=== PATIENT | male | born 1955 | race Caucasian/White ===

== ENCOUNTER → 2018-03-24 | Outpatient (CLI) | payer BC ==
[~2018-03-24] MED LIST: AMINOPHYLLINE 250 MG/10 ML VIAL IV ONE; REGADENOSON 0.4 MG/5 ML SYRINGE IV ONE
--- NOTE | 2018-03-24 14:09 | EST ---
EXERCISE STRESS DATE OF SERVICE: 03/24/2018 AGE: 62 SEX: M HT: 5'11" WT: 250 PROTOCOL: Lexiscan Cardiolite Stress Test HEART RATE REST: 89 BLOOD PRESSURE REST: 150/81 MAXIMUM HEART RATE ACHIEVED: 116 MAXIMUM BLOOD PRESSURE: 165/79 85% MPHR: 136 100% MPHR: 160 INDICATIONS: Chest pain. CLINICAL INFORMATION: STRESS DATA: Pretesting physical examination showed a heart rate of 89, pressure is 150/81 mmHg. Baseline EKG showed sinus mechanism; 0.4 mg of Lexiscan was given over 15 seconds per protocol. Max heart rate was 116 beats per minute and maximum pressure was 165/79 mmHg. Clinically, the patient did not have any symptoms of chest pain or discomfort. The EKG did not show any significant ST or T-wave abnormalities concerning for ischemia. CONCLUSION: 1. Nondiagnostic electrocardiogram stress testing in response to Lexiscan. 2. Please follow up on the Cardiolite portion on separate report from the Radiology Department. MMODL / IJN: [id number] /
--- NOTE | 2018-03-24 15:46 | NM ---
EXAMINATION TYPE: NM stress lexiscan cardiolite DATE OF EXAM: 03/24/2018 COMPARISON: NONE HISTORY: Dyspnea and chest pain TECHNIQUE: After the intravenous administration of 10.23 mCi Tc 99m Sestamibi - Cardiolite resting S PECT images acquired 45 minutes post injection. The patient received 0.4mg Lexiscan, 26.3 mCi Tc 99m Sestamibi - Stress images obtained [address] injection FINDINGS: Review of stress and rest SPECT images demonstrates decreased uptake along the anterior wall of the l eft ventricle on stress as compared to rest images, decreased uptake also noted at the cardiac apex o n stress as compared to rest images extending into the inferolateral apical region. Some decreased up take also noted in the apex on stress and rest images suggesting possible prior infarct. Gated analys is shows normal wall motion with an estimated left ventricular ejection fraction of 41 %. IMPRESSION: Patient may have had prior infarct. 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 Report relayed telephonically on this day to the referring clinician.
== END | disposition home or self-care (01) ==
LOC: RADNMMAIN 07:32
PROVIDERS: ATTEND Family Medicine
DX: R07.9 Chest pain, unspecified (principal); R06.09 Other forms of dyspnea
CPT/HCPCS: 93017; 78452; A9500; J2785

== ENCOUNTER 2018-04-21 09:54 | Day surgery (SDC) | payer BC ==
[2018-04-18 14:32] VITALS: BMI 34.8
[2018-04-21] MEDS ORDERED: SODIUM CHLORIDE 0.9% 1,000 ML in EMPTY BAG 1 BAG IV ONE (10:06)
[2018-04-21] MEDS ORDERED: NITROGLYCERIN SL TABS 0.4 MG TAB SUBLINGUAL PRN (10:06)
[2018-04-21] MEDS ORDERED: ALPRAZolam 0.25 MG TAB PO PRN (10:06)
[2018-04-21] MEDS ORDERED: ASPIRIN 325 MG TAB PO STA (10:06)
[2018-04-21] MEDS ORDERED: ATORVASTATIN 80 MG TAB PO STA (10:06)
[2018-04-21] MEDS ORDERED: ALPRAZolam 0.5 MG TAB PO PRN (10:06)
[2018-04-21 10:32] VITALS: TEMP 98.7
[2018-04-21 10:35] LABS: Basophils % (A) 1 %; Eosinophils # (A) 0.3 k/uL (0-0.7); Eosinophils % (A) 3 %; HCT 45.2 % (39.0-53.0); HGB 15.3 gm/dL (13.0-17.5); Lymphocytes # (A) 1.9 k/uL (1.0-4.8); Lymphocytes % (A) 22 %; MCH 32.5 pg (25.0-35.0); MCHC 33.9 g/dL (31.0-37.0); Mean Platelet Volume 7.4; Monocytes # (A) 0.7 k/uL (0-1.0); Monocytes % (A) 8 %; Neutrophils # (A) 5.5 k/uL (1.3-7.7); Neutrophils % (A) 64 %; Platelet Count 209 k/uL (150-450); RBC 4.71 m/uL (4.30-5.90); RDW 12.7 % (11.5-15.5); WBC 8.6 k/uL (3.8-10.6)
[2018-04-21 10:50] LABS: Anion Gap 11 mmol/L; Blood Urea Nitrogen 9 mg/dL (9-20); Calcium 9.5 mg/dL (8.4-10.2); Carbon Dioxide 27 mmol/L (22-30); Chloride 102 mmol/L (98-107); Glucose 161 mg/dL (74-99); Potassium 4.7 mmol/L (3.5-5.1); Sodium 140 mmol/L (137-145)
[2018-04-21] MEDS ORDERED: fentaNYL (PF) 50 MCG/ML 2 ML AMP IV ONE (11:19)
[2018-04-21] MEDS ORDERED: MIDAZOLAM 2 MG/2 ML VIAL IVP ONE (11:19)
[2018-04-21] MEDS ORDERED: IV FLUID CONTINUATION 950 ML IV ONE (11:19)
[2018-04-21] MEDS ORDERED: LIDOCAINE 1% INJ 10MG/ML (20 ML MDV) SQ ONE (11:31)
[2018-04-21] MEDS ORDERED: IOPAMIDOL-370 50ML BTL INJ ONE (11:47)
[2018-04-21] MEDS ORDERED: IOPAMIDOL-370 125ML BTL INJ ONE (11:47)
[2018-04-21] MEDS ORDERED: RX INFO: IV CONTRAST WAS GIVEN 1 EACH MISC MISCELLANE PRN (12:00)
[2018-04-21] MEDS ORDERED: SODIUM CHLORIDE 0.9% 1,000 ML IV SCH (12:00)
--- NOTE | 2018-04-21 12:09 | P.CARDCATH ---
Date of Procedure: 04/21/18 Preoperative Diagnosis: Stable angina and abnormal nuclear stress test Postoperative Diagnosis: Total occlusion of the left anterior descending in the proximal portion Procedure(s) Performed: Left heart catheterization with left ventriculography Description of Procedure: HISTORY: This is a 62-year-old gentleman with history of hypertension and COPD was been experiencing exertional chest tightness and shortness of breath. Patient had a nuclear stress test that showed ischemia which was both fixed and reversible. Patient is advised to have a cardiac catheterization for definitive diagnosis. CONSENT:I have discussed the risks, benefits and alternative therapies for the above-mentioned procedure and for both sedation/analgesia as well as necessary blood product administration, if indicated, as they pertain to this patient. The patient has indicated understanding and acceptance of the risks and procedures discussed. PROCEDURE: Patient was brought to the lab in a fasting state. Patient was given some IV sedation. The right groin is infiltrated with lidocaine and right femoral artery was entered using Seldinger technique. A 6-D[place]iboutian catheter was left in place and selective coronary arteriography and left ventriculography was performed. Patient tolerated the procedure well. Femoral angiogram was performed and Angio-Seal was applied for hemostasis. No immediate complications were noted and patient was transferred to [facility] in a stable condition Conscious Sedation: Versed 1 mg Fentanyl 50 g Duration 20 minutes HEMODYNAMICS: The aortic pressure is about 120/70. Left ankle end-diastolic pressure is about 10-12. There was no gradient across the aortic valve. SELECTIVE CORONARY ARTERIOGRAPHY: LEFT MAIN: Normal length and patent. THE LEFT ANTERIOR DESCENDING CORONARY ARTERY: Totally occluded in the proximal portion. There are ipsilateral collateral filling the diagonal branch. There are contralateral collaterals from the right filling the LAD. LAD seems to the moderate in caliber. THE INTERMEDIATE CORONARY ARTERY: This is a good caliber vessel and free of any occlusive disease THE LEFT CIRCUMFLEX AND IS CORONARY ARTERY: This is a good caliber vessel free of any occlusive disease THE RIGHT CORONARY ARTERY: This is a relatively nondominant vessel. Provides collateral to the distal LAD. Free of any significant occlusive disease LEFT VENTRICULOGRAPHY: This revealed normal-sized cardiac silhouette with hypokinesia presented wall. Overall left were function is mildly impaired with an ejection fraction of 45-50% FINAL IMPRESSION: Total occlusion of the proximal LAD. There are collaterals to the LAD from the right coronary system. The circumflex and right coronary artery are free of any significant occlusive disease PLAN: I would recommend a bypass surgery with the REDD graft to the LAD and vein graft to diagonal PROGNOSIS: Fair
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
--- NOTE | 2018-04-21 14:27 | XR ---
EXAMINATION TYPE: XR chest 2V DATE OF EXAM: 04/21/2018 COMPARISON: NONE TECHNIQUE: PA and lateral views submitted. HISTORY: Preop FINDINGS: The lungs are clear and there is no pneumothorax, pleural effusion, or focal pneumonia. Hypertrophi c and degenerative change of the spine noted. Hyperinflation suggests COPD. Linear density in the ret rosternal space typical scar or atelectasis. IMPRESSION: 1. No acute process. Correlate for COPD.
--- NOTE | 2018-04-21 15:31 | US ---
EXAMINATION TYPE: US carotid duplex BILAT DATE OF EXAM: 04/21/2018 COMPARISON: NONE CLINICAL HISTORY: preop cardiac surgery. EXAM MEASUREMENTS: RIGHT: Peak Systolic Velocity (PSV) cm/sec ----- Right CCA: 57.2 ----- Right ICA: 42.2 ----- Right ECA: 56.4 ICA/CCA ratio: 0.7 RIGHT: End Diastole cm/sec ----- Right CCA: 13.6 ----- Right ICA: 17.6 ----- Right ECA: 4.4 LEFT: Peak Systolic Velocity (PSV) cm/sec ----- Left CCA: 47.9 ----- Left ICA: 55.0 ----- Left ECA: 51.7 ICA/CCA ratio: 1.1 LEFT: End Diastole cm/sec ----- Left CCA: 11.6 ----- Left ICA: 16.6 ----- Left ECA: 0.0 VERTEBRALS (direction of flow): Right Vertebral: Antegrade Left Vertebral: Antegrade Rhythm: Normal Technically difficult study. Large thick neck and SOB. No significant velocity elevations. Intimal thickening scattered atheromatous plaquing is present. IMPRESSION: 1. No flow-limiting stenosis by velocity measurements. Criteria for Assigning % of Stenosis / Diameter reduction (Estimation based on the indirect measurements of the internal carotid artery velocities (ICA PSV). 1. Normal (no stenosis)=ICA PSV < 125 cm/s: ratio < 2.0: ICA EDV<40 cm/s. 2. Less than 50% stenosis=ICA PSV < 125 cm/s: ratio < 2.0: ICA EDV<40 cm/s. 3. 50 to 69% stenosis=ICA PSV of 125 to 230 cm/s: ration 2.0 ? 4.0: ICA EDV 40-100 cm/s. 4. Greater than 70% stenosis to near occlusion= ICA PSV > 230 cm/s: ratio > 4.0: ICA EDV > 100 cm/s. 5. Near occlusion= ICA PSV velocities may be low or undetectable: variable ratio and ICA EDV. 6. Total occlusion=unable to detect flow.
[2018-04-21 15:58] LABS: Basophils % (A) 1 %; Eosinophils # (A) 0.3 k/uL (0-0.7); Eosinophils % (A) 3 %; HCT 43.6 % (39.0-53.0); HGB 14.7 gm/dL (13.0-17.5); Lymphocytes # (A) 2.1 k/uL (1.0-4.8); Lymphocytes % (A) 25 %; MCH 32.7 pg (25.0-35.0); MCHC 33.8 g/dL (31.0-37.0); MCV 96.7 fL (80.0-100.0); Mean Platelet Volume 7.5; Monocytes # (A) 0.6 k/uL (0-1.0); Monocytes % (A) 7 %; Neutrophils # (A) 5.3 k/uL (1.3-7.7); Neutrophils % (A) 63 %; Platelet Count 200 k/uL (150-450); RBC 4.51 m/uL (4.30-5.90); RDW 12.8 % (11.5-15.5); WBC 8.5 k/uL (3.8-10.6)
[2018-04-21 16:08] LABS: INR 1.1 (<1.2); Partial Thromboplastin Time 28.2 sec (22.0-30.0); Prothrombin Time 10.8 sec (9.0-12.0)
[2018-04-21 16:09] LABS: ALT 60 U/L (21-72); AST 53 U/L (17-59); Albumin 4.3 g/dL (3.5-5.0); Alkaline Phosphatase 105 U/L (38-126); Anion Gap 10 mmol/L; Blood Urea Nitrogen 9 mg/dL (9-20); Calcium 9.5 mg/dL (8.4-10.2); Carbon Dioxide 31 mmol/L (22-30); Chloride 99 mmol/L (98-107); Cholesterol 164 mg/dL (<200); Glucose 136 mg/dL (74-99); HDL Cholesterol 38 mg/dL (40-60); LDL Cholesterol,Calculated 99 mg/dL (0-99); Magnesium 1.9 mg/dL (1.6-2.3); Potassium 4.3 mmol/L (3.5-5.1); Sodium 140 mmol/L (137-145); Total Bilirubin 0.7 mg/dL (0.2-1.3); Total Protein 7.5 g/dL (6.3-8.2); Triglycerides 137 mg/dL (<150)
[2018-04-21 16:15] VITALS: BP 164/74; PULSE 77; RESP 22
[2018-04-21 17:13] LABS: Appearance,Urine Clear (Clear); Bilirubin,Urine Negative (Negative); Blood,Urine Negative (Negative); Color,Urine Yellow; Glucose,Urine (UA) Negative (Negative); Ketones,Urine Negative (Negative); Leukocyte Esterase,Urine Negative (Negative); Nitrite,Urine Negative (Negative); PH, Urine 6.5 (5.0-8.0); Protein,Urine Trace (Negative); Urobilinogen,Urine <2.0 mg/dL (<2.0)
[2018-04-21 17:18] LABS: Specific Gravity,Urine >1.050 (1.001-1.035)
[2018-04-22 01:04] LABS: Hemoglobin A1C 7.4 % (4.0-6.0)
[2018-04-22 01:13] LABS: Hepatitis A Antibody IgM Non-Reactive (Non-Reactive); Hepatitis B Core IgM Non-Reactive (Non-Reactive)
--- NOTE | 2018-04-25 10:57 | P.VSCSTY ---
Greater Saphenous Vein Mapping This is bilateral lower extremity greater saphenous vein mapping. Date of service 04/21/2018 Vein quality and ultrasound appearance no wall changes or thrombosis are seen. Vein size groin right 8.4 x 7.1 groin left 9.0 x 7.4 High thigh right 6.3 x 3.9 high thigh left 6.2 x 5.0 Mid thigh right 5.7 x 5.0 mid thigh left 5.6 x 4.7 Above-knee right 5.4 x 4.1 above-knee left 6.0 x 4.7 Below knee right 3.9 x 2.4 below-knee left 5.3 x 3.5 Mid calf right 2.6 x 2.2 mid calf left 2.8 x 2.2 Ankle right 4.5 x 2.2 ankle left 3.0 x 2.2 Impression usable bilateral greater saphenous vein. Vein in the upper thigh a bit large for conduit..
== END 2018-04-21 16:49 | disposition home or self-care (01) ==
LOC: CATHCVL 09:54
PROVIDERS: ATTEND Internal Medicine Cardiovascular Disease
DX: I25.118 Atherosclerotic heart disease of native coronary artery with other forms of angina pectoris (principal); I25.82 Chronic total occlusion of coronary artery; I10 Essential (primary) hypertension; I08.3 Combined rheumatic disorders of mitral, aortic and tricuspid valves; Z87.891 Personal history of nicotine dependence; Z82.49 Family history of ischemic heart disease and other diseases of the circulatory system; J44.9 Chronic obstructive pulmonary disease, unspecified; E78.5 Hyperlipidemia, unspecified; Z79.82 Long term (current) use of aspirin; Z79.899 Other long term (current) drug therapy
CPT/HCPCS: 94150; 93458; 80061; 80053; 80048; 80074; 84443; 83735; 85025; 85610; 85730; 81003; 87070; 87086; 83036; 71046; 93970; 93880; C1760; C1894; C1769; J2250; J2001; J3010; Q9967 ×2

== ENCOUNTER → 2018-05-18 | Outpatient (CLI) | payer BC ==
[2018-05-18 09:29] LABS: HCT 45.3 % (39.0-53.0); HGB 15.4 gm/dL (13.0-17.5); MCH 32.8 pg (25.0-35.0); MCHC 33.9 g/dL (31.0-37.0); MCV 96.5 fL (80.0-100.0); Mean Platelet Volume 7.4; Platelet Count 177 k/uL (150-450); RBC 4.69 m/uL (4.30-5.90); RDW 12.9 % (11.5-15.5); WBC 10.3 k/uL (3.8-10.6)
[2018-05-18 09:37] LABS: INR 1.1 (<1.2); Partial Thromboplastin Time 29.5 sec (22.0-30.0); Prothrombin Time 10.7 sec (9.0-12.0)
[2018-05-18 09:51] LABS: ALT 46 U/L (21-72); AST 43 U/L (17-59); Albumin 4.5 g/dL (3.5-5.0); Alkaline Phosphatase 122 U/L (38-126); Anion Gap 7 mmol/L; Blood Urea Nitrogen 10 mg/dL (9-20); Calcium 9.4 mg/dL (8.4-10.2); Carbon Dioxide 32 mmol/L (22-30); Chloride 101 mmol/L (98-107); Cholesterol 95 mg/dL (<200); Glucose 166 mg/dL (74-99); HDL Cholesterol 35 mg/dL (40-60); LDL Cholesterol,Calculated 39 mg/dL (0-99); Magnesium 1.9 mg/dL (1.6-2.3); Sodium 140 mmol/L (137-145); Total Bilirubin 0.9 mg/dL (0.2-1.3); Total Protein 7.9 g/dL (6.3-8.2); Triglycerides 105 mg/dL (<150)
[2018-05-18 10:44] LABS: ABG Base Excess 4.1 mmol/L; ABG HCO3 28 mmol/L (21-25); ABG PCO2 43 mmHg (35-45); ABG PH 7.42 (7.35-7.45); ABG PO2 64 mmHg (83-108); ABG TCO2 30 mmol/L (19-24)
[2018-05-18 10:47] LABS: Appearance,Urine Clear (Clear); Bilirubin,Urine Negative (Negative); Blood,Urine Negative (Negative); Color,Urine Yellow; Glucose,Urine (UA) Negative (Negative); Ketones,Urine Negative (Negative); Leukocyte Esterase,Urine Negative (Negative); Nitrite,Urine Negative (Negative); PH, Urine 6.5 (5.0-8.0); Protein,Urine Trace (Negative); Specific Gravity,Urine 1.018 (1.001-1.035)
[2018-05-18 17:31] LABS: Hemoglobin A1C 7.4 % (4.0-6.0)
--- NOTE | 2018-05-22 11:34 | P.PN ---
Progress Note - Text Progress Note Date: 05/18/18 STS risk score was calculated and discussed with the patient. 5 meter walk test was performed 05/18/18: #1 3.49 sec #2 3.68 sec #3 3.76 sec
--- NOTE | 2018-05-23 11:30 | P.ARTDOP ---
Arterial Doppler LOWER EXTREMITY ARTERIAL DOPPLER: DATE OF SERVICE: 05/18/2018 Reason for study: Pre-CABG. Doppler waveforms: Multiphasic bilaterally throughout. Pulse volume recording: []. Pressure gradients: None. Ankle-brachial indices: Greater than 1 bilaterally. Toe pressures: [] on the right, [] on the left Impression: Normal study.
== END | disposition home or self-care (01) ==
LOC: LABPAT 08:56
PROVIDERS: ATTEND Surgery
DX: Z01.810 Encounter for preprocedural cardiovascular examination (principal)
CPT/HCPCS: 36415; 36600; 80053; 80061; 81003; 82805; 83036; 83735; 83880; 84484; 85027; 85610; 85730; 86850; 86900; 86901; 86920; 87086; 93005; 93922; 94150

== ENCOUNTER 2018-05-26 05:33 | Inpatient (IN) | payer BC ==
[~2018-05-26 05:33] MED LIST changes: +ALBUMIN HUMAN 25% 50 ML IV ONE; +ALBUMIN HUMAN 5% 500 ML IVPB ONE; -AMINOPHYLLINE 250 MG/10 ML VIAL IV ONE; +ASPIRIN 325 MG TAB PO ONE; +ATORVASTATIN 10 MG TAB PO ONE; +CALCIUM CHLORIDE 100 MG/ML 10 ML SYRINGE IV ONE; +CHLORHEXIDINE GLUCONATE 15 ML CUP MUCOUS MEM ONE; +CLEVIDIPINE BUTYRATE 25 MG in EMPTY BAG 1 BAG IV ONE; +DEXTROSE 5% IN WATER 1,000 ML with POTASSIUM CHLORIDE 110 MEQ, MAGNESIUM SULFATE 16 MEQ... IV ONE; +DEXTROSE 5% IN WATER 1,000 ML with POTASSIUM CHLORIDE 25 MEQ, SODIUM CHLORIDE 2.5MEQ/ML... IRRIGATION ONE; +HEPARIN SODIUM 1,000 UN/ML (10ML VL) IV ONE; +HEPARIN SODIUM,PORCINE 5,000 UNIT in SODIUM CHLORIDE 0.9% 500 ML IV ONE; +INSULIN REGULAR 100 UNIT in SODIUM CHLORIDE 0.9% 100 ML IV ONE; +LACTATED RINGERS 1,000 ML IV ONE; +MAGNESIUM SULFATE MG 500 MG/ML VIAL IV ONE; +MANNITOL 25% 12.5 GM/50 ML VIAL IV ONE; +METOPROLOL TARTRATE 12.5 MG TAB PO ONE; +NITROGLYCERIN SL TABS 0.4 MG TAB SUBLINGUAL ONE; +NITROGLYCERIN-D5W PMX 25 MG/250 ML BTL IV ONE; +NITROGLYCERIN-D5W PMX 50 MG in DEXTROSE/WATER 1 250ML.BAG IV ONE; +NOREPINEPHRINE 4 MG in DEXTROSE 5% IN WATER 250 ML IV ONE; +PAPAVERINE 360 MG in SODIUM CHLORIDE 0.9% 90 ML IV ONE; +PHENYLEPHRINE 40 MG in SODIUM CHLORIDE 0.9% 250 ML IV ONE; +PHENYLEPHRINE-0.9% NACL SYG 1 MG/10 ML SYRINGE IV ONE; +PROPOFOL 1,000 MG/100 ML VIAL IV ONE; +PROTAMINE SULFATE 10 MG/ML 25 ML VIAL IV ONE; +PROTAMINE SULFATE 250 MG in EMPTY BAG 1 BAG IV ONE; -REGADENOSON 0.4 MG/5 ML SYRINGE IV ONE; +SODIUM BICARB 8.4% 50 ML SYR (1 MEQ/ML) IV ONE; +SODIUM CHLORIDE 0.9% 1,000 ML IV ONE; +TRANEXAMIC ACID 2,000 MG in SODIUM CHLORIDE 0.9% 180 ML IV ONE; +ceFAZolin 2,000 MG in SODIUM CHLORIDE 0.9% 30 ML IVPB ONE
[2018-05-26] MEDS ORDERED: SODIUM CHLORIDE 0.9% 250 ML BAG ONE (08:02)
[2018-05-26] MEDS ORDERED: LIDOCAINE 2% SYG (PF) 100 MG/5 ML ONE (08:02)
[2018-05-26] MEDS ORDERED: PROPOFOL 10 MG/ML 20 ML VIAL IV ONE (08:02)
[2018-05-26] MEDS ORDERED: ELECTROLYTE-R (PH 7.4) 1,000 ML IV.SOLN IV ONE (08:02)
[2018-05-26] MEDS ORDERED: fentaNYL (PF) 50 MCG/ML 2 ML AMP ONE (08:02)
[2018-05-26] MEDS ORDERED: SUFentanil 50 MCG/ML 2ML AMP ONE (08:02)
[2018-05-26] MEDS ORDERED: TRANEXAMIC ACID 1,000 MG/10 ML VIAL ONE (08:02)
[2018-05-26] MEDS ORDERED: MIDAZOLAM 2 MG/2 ML VIAL ONE (08:02)
[2018-05-26] MEDS ORDERED: VECURONIUM 10 MG VIAL IV ONE (08:02)
[2018-05-26] MEDS ORDERED: MAGNESIUM SULFATE 4 MEQ/ML 2 ML VIAL ONE (08:02)
[2018-05-26] MEDS ORDERED: fentaNYL (PF) 50 MCG/ML 50 ML VIAL ONE (08:02)
[2018-05-26] MEDS ORDERED: PROTAMINE SULFATE 10 MG/ML 25 ML VIAL IV ONE (08:02)
[2018-05-26] MEDS ORDERED: HEPARIN SODIUM,PORCINE 10,000 UNIT/ML 1 ML VIAL ONE (08:02)
[2018-05-26 08:34] LABS: ABG Base Excess 0.8 mmol/L; ABG HCO3 27 mmol/L (21-25); ABG PCO2 49 mmHg (35-45); ABG PH 7.35 (7.35-7.45); ABG PO2 396 mmHg (83-108); ABG Potassium Whole Blood 3.8 mmol/L (3.4-4.5); ABG Sodium Whole Blood 139 mmol/L (135-146); ABG TCO2 29 mmol/L (19-24)
[2018-05-26] MEDS: ceFAZolin 1,000 MG in SODIUM CHLORIDE 0.9% IRRIGATIO 1,000 ML IRRIGATION ONE ×2 (09:20→12:34)
[2018-05-26 10:09] LABS: ABG Base Excess 0.9 mmol/L; ABG HCO3 29 mmol/L (21-25); ABG Oxygen Saturation 99.2 % (94-97); ABG PCO2 61 mmHg (35-45); ABG PH 7.29 (7.35-7.45); ABG PO2 158 mmHg (83-108); ABG Potassium Whole Blood 4.8 mmol/L (3.4-4.5); ABG Sodium Whole Blood 138 mmol/L (135-146); ABG TCO2 31 mmol/L (19-24)
[2018-05-26 11:02] LABS: ABG Base Excess -0.4 mmol/L; ABG HCO3 27 mmol/L (21-25); ABG Oxygen Saturation 99.1 % (94-97); ABG PCO2 54 mmHg (35-45); ABG PH 7.31 (7.35-7.45); ABG PO2 141 mmHg (83-108); ABG Sodium Whole Blood 130 mmol/L (135-146); ABG TCO2 28 mmol/L (19-24)
[2018-05-26 11:14] LABS: ABG Base Excess -0.7 mmol/L; ABG HCO3 25 mmol/L (21-25); ABG PCO2 46 mmHg (35-45); ABG PH 7.34 (7.35-7.45); ABG PO2 303 mmHg (83-108); ABG Sodium Whole Blood 131 mmol/L (135-146); ABG TCO2 27 mmol/L (19-24)
[2018-05-26 11:41] LABS: ABG Base Excess -1.5 mmol/L; ABG HCO3 24 mmol/L (21-25); ABG Oxygen Saturation 99.9 % (94-97); ABG PCO2 45 mmHg (35-45); ABG PH 7.34 (7.35-7.45); ABG PO2 232 mmHg (83-108); ABG Sodium Whole Blood 133 mmol/L (135-146); ABG TCO2 26 mmol/L (19-24)
[2018-05-26 11:58] LABS: ABG Base Excess -2.4 mmol/L; ABG HCO3 24 mmol/L (21-25); ABG Oxygen Saturation 99.5 % (94-97); ABG PCO2 46 mmHg (35-45); ABG PH 7.32 (7.35-7.45); ABG PO2 187 mmHg (83-108); ABG Potassium Whole Blood 5.7 mmol/L (3.4-4.5); ABG Sodium Whole Blood 135 mmol/L (135-146); ABG TCO2 25 mmol/L (19-24)
[2018-05-26 12:43] LABS: ABG Base Excess -1.8 mmol/L; ABG HCO3 25 mmol/L (21-25); ABG Oxygen Saturation 99.9 % (94-97); ABG PCO2 51 mmHg (35-45); ABG PO2 235 mmHg (83-108); ABG Potassium Whole Blood 4.9 mmol/L (3.4-4.5); ABG Sodium Whole Blood 137 mmol/L (135-146); ABG TCO2 27 mmol/L (19-24)
[2018-05-26 12:52] LABS: ABG Potassium Whole Blood 6.9 mmol/L (3.4-4.5)
[2018-05-26 12:54] LABS: ABG Potassium Whole Blood 6.9 mmol/L (3.4-4.5)
[2018-05-26 12:54] LABS: ABG Potassium Whole Blood 6.3 mmol/L (3.4-4.5)
[2018-05-26] MEDS ORDERED: DEXTROSE 5% IN WATER 100 ML with AMIODARONE 150 MG IV PRN (13:27)
[2018-05-26] MEDS ORDERED: METOCLOPRAMIDE 5 MG/ML 2 ML VIAL IVP PRN (13:27)
[2018-05-26] MEDS ORDERED: Phosphorus Replacement Protoco 1 EACH MISC MISCELLANE PRN (13:27)
[2018-05-26] MEDS ORDERED: BENZOCAINE/MENTHOL LOZENG 1 EACH LOZENGE MUCOUS MEM PRN (13:27)
[2018-05-26] MEDS ORDERED: CALCIUM CHLORIDE 1,000 MG in SODIUM CHLORIDE 0.9% 100 ML IV PRN (13:27)
[2018-05-26] MEDS ORDERED: NITROGLYCERIN-D5W PMX 50 MG in DEXTROSE/WATER 1 250ML.BAG IV SCH (13:27)
[2018-05-26] MEDS ORDERED: Magnesium Replacement Protocol 1 EACH MISC MISCELLANE PRN (13:27)
[2018-05-26] MEDS ORDERED: PROPOFOL 1,000 MG in EMPTY BAG 1 BAG IV SCH (13:27)
[2018-05-26] MEDS ORDERED: IPRATROPIUM-ALBUTEROL 3 ML NEB INHALATION PRN (13:27)
[2018-05-26] MEDS ORDERED: ALBUMIN HUMAN 5% 250 ML in EMPTY BAG 1 BAG IVPB PRN (13:27)
[2018-05-26] MEDS ORDERED: Potassium Replacement Protocol 1 EACH MISC MISCELLANE PRN (13:27)
[2018-05-26] MEDS: LACTATED RINGERS 1,000 ML IV SCH (14:00)
[2018-05-26] MEDS: INSULIN REGULAR 100 UNIT in SODIUM CHLORIDE 0.9% 100 ML IV SCH (14:00)
[2018-05-26 14:12] LABS: Glucose,Whole Blood 159 mg/dL (75-99)
[2018-05-26] MEDS: CLEVIDIPINE BUTYRATE 25 MG in EMPTY BAG 1 BAG IV SCH ×4 (14:15→23:54)
[2018-05-26 14:34] LABS: ABG Base Excess -0.1 mmol/L; ABG HCO3 27 mmol/L (21-25); ABG PCO2 59 mmHg (35-45); ABG PH 7.27 (7.35-7.45); ABG PO2 374 mmHg (83-108); ABG TCO2 29 mmol/L (19-24)
--- NOTE | 2018-05-26 14:45 | XR ---
EXAMINATION TYPE: XR chest 1V portable DATE OF EXAM: 05/26/2018 COMPARISON: 04/21/2018 HISTORY: Post CABG TECHNIQUE: Single frontal view of the chest is obtained. FINDINGS: ET tube is approximately 6 7 m above randal. [place]-Marie catheter, mediastinal drain and tiburcio st tube noted. Areas of consolidation and tiny effusion bilaterally. Arthropathy of the shoulders. Po stsurgical changes noted. IMPRESSION: 1. Postoperative change with suspected bilateral areas of postoperative atelectasis.
[2018-05-26] MEDS ORDERED: hydrALAZINE HCL 20 MG/ML 1 ML VIAL ONE (15:00)
[2018-05-26] MEDS: LABETALOL 5 MG/ML VIAL MDV IVP SCH ×3 (15:15→15:37)
[2018-05-26] MEDS ORDERED: fentaNYL (PF) 50 MCG/ML 2 ML AMP IVP PRN (15:15)
[2018-05-26 15:34] LABS: Ionized Calcium 4.8 mg/dL (4.5-5.3)
[2018-05-26 15:37] LABS: Basophils % (A) 0 %; Eosinophils % (A) 0 %; HCT 31.2 % (39.0-53.0); HGB 10.7 gm/dL (13.0-17.5); Lymphocytes # (A) 1.2 k/uL (1.0-4.8); Lymphocytes % (A) 9 %; MCH 33.8 pg (25.0-35.0); MCHC 34.4 g/dL (31.0-37.0); MCV 98.2 fL (80.0-100.0); Mean Platelet Volume 7.5; Monocytes # (A) 0.9 k/uL (0-1.0); Monocytes % (A) 7 %; Neutrophils # (A) 10.9 k/uL (1.3-7.7); Neutrophils % (A) 83 %; RBC 3.18 m/uL (4.30-5.90); RDW 12.6 % (11.5-15.5); WBC 13.1 k/uL (3.8-10.6)
[2018-05-26 15:38] LABS: Platelet Count 90 k/uL (150-450)
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
[2018-05-26] MEDS: ceFAZolin IN SWFI 2 GM/20 ML SYRINGE IVP SCH ×2 (15:43→23:55)
[2018-05-26 15:45] LABS: ALT 37 U/L (21-72); AST 48 U/L (17-59); Albumin 3.2 g/dL (3.5-5.0); Alkaline Phosphatase 52 U/L (38-126); Anion Gap 7 mmol/L; Blood Urea Nitrogen 13 mg/dL (9-20); Calcium 7.8 mg/dL (8.4-10.2); Carbon Dioxide 26 mmol/L (22-30); Chloride 106 mmol/L (98-107); Glucose 143 mg/dL (74-99); Magnesium 2.3 mg/dL (1.6-2.3); Potassium 4.7 mmol/L (3.5-5.1); Sodium 139 mmol/L (137-145); Total Bilirubin 0.9 mg/dL (0.2-1.3); Total Protein 5.3 g/dL (6.3-8.2)
[2018-05-26 15:55] LABS: INR 1.2 (<1.2); Partial Thromboplastin Time 31.4 sec (22.0-30.0); Prothrombin Time 11.7 sec (9.0-12.0)
[2018-05-26] MEDS ORDERED: IPRATROPIUM-ALBUTEROL 3 ML NEB INHALATION SCH (16:00)
[2018-05-26 16:04] LABS: Glucose,Whole Blood 144 mg/dL (75-99)
[2018-05-26 16:47] LABS: Basophils % (A) 0 %; Eosinophils % (A) 0 %; HCT 35.5 % (39.0-53.0); Lymphocytes # (A) 1.7 k/uL (1.0-4.8); Lymphocytes % (A) 11 %; MCHC 33.7 g/dL (31.0-37.0); MCV 97.7 fL (80.0-100.0); Mean Platelet Volume 7.8; Monocytes # (A) 0.9 k/uL (0-1.0); Monocytes % (A) 6 %; Neutrophils # (A) 12.1 k/uL (1.3-7.7); Neutrophils % (A) 82 %; Platelet Count 122 k/uL (150-450); RBC 3.63 m/uL (4.30-5.90); RDW 12.7 % (11.5-15.5); WBC 14.9 k/uL (3.8-10.6)
--- NOTE | 2018-05-26 16:52 | OP ---
OPERATIVE REPORT DATE OF SURGERY: 05/26/2018. PREOPERATIVE DIAGNOSIS: Coronary artery disease. POSTOPERATIVE DIAGNOSIS: Coronary artery disease. PROCEDURE: 1. Coronary artery bypass grafting x2 vessels (left internal mammary artery to left anterior descending artery, saphenous vein graft to diagonal artery). 2. Patch angioplasty of left anterior descending artery. 3. Endoscopic vein harvest of left greater saphenous vein. 4. Transesophageal echocardiogram. 5. Epiaortic ultrasound. SURGEON: Adonis Valle MD. SURVEILLANCE DUAL RATE OFFICER: 1. WINSTON Aguillon. 2. WINSTON Freeman. ANESTHESIA: General. SPECIMENS: None. COMPLICATIONS: None. INDICATION: The patient is a 62-year-old male with a past medical history significant for coronary artery disease, COPD, hypertension, hyperlipidemia, and tobacco use who reports exertional angina and dyspnea with exertion. Workup revealed coronary artery disease. Coronary artery bypass was recommended. The risks, benefits, and alternatives to this procedure were discussed with the patient. All his questions were answered. Consent was obtained. FINDINGS: The left internal mammary artery was a good conduit with brisk flow. The saphenous vein was a good conduit. The LAD measured 1.3 mm. The diagonal artery measured 1.3 mm. PROCEDURE IN DETAIL: The patient was taken to the operating room and placed supine on the operating table. After the induction of general anesthesia, he was prepped and draped in the usual sterile fashion. Preoperative transesophageal echocardiogram revealed a preserved ejection fraction of about 50% and trace mitral regurgitation. A median sternotomy was performed. The left internal mammary artery was harvested in the standard fashion taking care to clip all branches. Intravenous heparin was administered. The vessel was transected distally revealing brisk flow. Simultaneously, greater saphenous vein was harvested from the left lower extremity using endoscopic technique. All branches were tied. Both the mammary artery and the vein were good conduits. A pericardial cradle was created. The ascending aorta was palpated. There was no significant plaque noted. Epiaortic ultrasound was then performed. Again, there was no significant calcific plaque noted in the aorta. However, there was some atheromatous disease located posteriorly. An arterial cannula was placed in the distal ascending aorta. A venous cannula was placed through the right atrial appendage and directed into the IVC. Both antegrade and retrograde catheters were placed as well. The patient was then placed on cardiopulmonary bypass with good decompression of the heart. The aortic cross-clamp was applied in an area free of atheromatous disease. Cold blood potassium cardioplegia was delivered in both antegrade and retrograde fashion to achieve arrest of the heart. Of note, cardioplegia was delivered every 15-20 minutes with the patient under crossclamp. We began by dissecting free the diagonal artery. A small arteriotomy was created. This vessel accepted a 1 mm probe. Using saphenous vein in a reverse fashion, an end-to- side anastomosis was created. This was performed using a running 7-0 Prolene suture. The graft was hemostatic and had good flow. Next, the LAD was dissected free. A soft spot was noted distally. There was some plaque noted. I did extend my arteriotomy across the plaque. This vessel accepted a 1 mm probe. Using the left internal mammary artery, an end-to-side anastomosis created. This was performed using running 8- 0 Prolene suture and resulted in an extended anastomosis with patch angioplasty. The anastomosis was hemostatic. The mammary pedicle was then tacked down to the anterior side of the heart. Attention was then turned to the proximal anastomosis. This performed in an end -to- side fashion using running 6-0 Prolene suture. 1 L of warm blood was delivered in retrograde fashion. Lidocaine and magnesium were administered as well. The cross- clamp was removed. The vein grafts were de-aired in the standard fashion. Distal anastomoses were inspected and appeared to be hemostatic. The retrograde catheter was removed. Temporary atrial and ventricular pacing wires were placed and brought through the skin. The patient was then weaned off coronary bypass. He without difficulty. He did not require any pressor support. Followup transesophageal echocardiogram confirmed good left ventricular ejection fraction and trace mitral regurgitation. Of note, the patient was noted to have some hypokinesis of the septum, which was seen on the preop echo as well. It was unchanged. Protamine was administered. There was no adverse reactions. The remaining cannulas were then removed. The site was copiously irrigated with warm saline solution. All surgical sites were inspected and appeared to be hemostatic. Reinforcement sutures were placed as needed. Soft tissue was reapproximated over the ascending aorta as well as over the apex of the heart. Straight 32-[place] chest tubes were placed in the left pleural space as well as into the mediastinum. These were secured to the skin using sutures. Due to the patient's body habitus, I elected to close the sternum using the [place] cable system. The cables were placed in a figure-eight fashion. At the completion of the closure, the sternum was well aligned. The remainder of the wound was closed in layers. Sterile dressing was applied. The patient appeared to have tolerated the procedure well. There were no immediate complications. He returned to the ICU in critical but stable condition. MATHIEU / EZN: [id number] / MTDMarce
[2018-05-26 17:10] LABS: Glucose,Whole Blood 139 mg/dL (75-99)
[2018-05-26] MEDS: KETOROLAC 30 MG/ML 1 ML VIAL IVP SCH ×2 (17:18→23:55)
[2018-05-26] MEDS: ACETAMINOPHEN IV (For NPO) 1,000 MG in EMPTY BAG 1 BAG IVPB SCH ×2 (17:18→23:53)
[2018-05-26] MEDS: IPRATROPIUM-ALBUTEROL 3 ML NEB INHALATION SCH ×2 (17:33→19:47)
[2018-05-26 18:02] LABS: Glucose,Whole Blood 139 mg/dL (75-99)
[2018-05-26 19:12] LABS: ABG Base Excess 0.4 mmol/L; ABG HCO3 27 mmol/L (21-25); ABG Oxygen Saturation 96.6 % (94-97); ABG PCO2 51 mmHg (35-45); ABG PH 7.32 (7.35-7.45); ABG PO2 84 mmHg (83-108); ABG TCO2 28 mmol/L (19-24)
[2018-05-26 19:22] LABS: Basophils % (A) 0 %; Eosinophils # (A) 0.1 k/uL (0-0.7); Eosinophils % (A) 0 %; HCT 34.4 % (39.0-53.0); HGB 11.9 gm/dL (13.0-17.5); Lymphocytes # (A) 1.2 k/uL (1.0-4.8); Lymphocytes % (A) 8 %; MCH 33.8 pg (25.0-35.0); MCHC 34.5 g/dL (31.0-37.0); Mean Platelet Volume 7.4; Monocytes # (A) 1.1 k/uL (0-1.0); Monocytes % (A) 7 %; Neutrophils # (A) 12.6 k/uL (1.3-7.7); Neutrophils % (A) 83 %; Platelet Count 120 k/uL (150-450); RBC 3.51 m/uL (4.30-5.90); RDW 12.7 % (11.5-15.5); WBC 15.2 k/uL (3.8-10.6)
[2018-05-26 19:30] LABS: Glucose,Whole Blood 153 mg/dL (75-99)
[2018-05-26 20:03] LABS: Glucose,Whole Blood 171 mg/dL (75-99)
[2018-05-26] MEDS: ONDANSETRON 4 MG/2 ML VIAL IVP PRN (20:57)
[2018-05-26 20:59] LABS: Glucose,Whole Blood 157 mg/dL (75-99)
[2018-05-26] MEDS: MUPIROCIN 2% OINT 22 GM TUBE NASAL SCH (21:15)
--- NOTE | 2018-05-26 21:19 | CONS ---
CONSULTATION Mr. Lara is a 62-year-old male with coronary bypass grafting with REDD to LAD, saphenous vein graft to diagonal branch. He is intubated and sedated in the ICU. The patient has been followed by Dr. Mckeon. He has a history of COPD and history of dyspnea on exertion as well as prior history of cardiomyopathy. He underwent a cardiac catheterization by Dr. Mckeon on April 21. At that time, he had a totally occluded proximal LAD with collateral to left system from the right coronary artery with no obstructive disease in the RCA and the left circumflex. The patient was admitted electively and underwent the surgical intervention. Earlier on, he had an episode of hypertension that required labetalol to control it. At this time, his blood pressure is under better control. He is in sinus mechanism. PAST MEDICAL HISTORY: Past history is obtained from the records and include: Hypertension, COPD, history of smoking, hyperlipidemia. His ejection fraction preoperatively was estimated at 55% with no significant valvular disease. REVIEW OF SYSTEMS: Is not obtainable at this time. PHYSICAL EXAMINATION: A 62-year-old male intubated, sedated. Blood pressure 120/50 with a heart in the 80s. HEAD: Normocephalic. EYES: Sclerae anicteric. NECK: No bruit with a [place]-Marie noted on the right side. LUNGS: Clear to auscultation anteriorly. HEART: Regular rate and rhythm S1, S2. No S3 with a rub noted. ABDOMEN: Soft, positive bowel sounds. No organomegaly. EXTREMITIES: Cristopher wrapping in place. LAB DATA: Lab data revealed a hemoglobin of 12. BUN and creatinine of 13 and 0.62. IMPRESSION: 1. Status post coronary artery bypass grafting. 2. Hypertension. 3. History of chronic tobacco use. RECOMMENDATION: From the cardiac standpoint, we will continue the routine postoperative care. Once he is extubated, then we will re-initiate treatment with CRISTOPHER inhibitor and statin and beta brayden. Thank you for this consult. We will follow with you. MMODL / IJN: [id number] /
[2018-05-26 21:53] LABS: Glucose,Whole Blood 166 mg/dL (75-99)
[2018-05-26 23:04] LABS: Glucose,Whole Blood 180 mg/dL (75-99)
[2018-05-26] MEDS: HEPARIN SODIUM,PORCINE 5,000 UNIT/ML 1 ML VIAL SQ SCH (23:55)
[2018-05-27 00:07] LABS: Glucose,Whole Blood 136 mg/dL (75-99)
[2018-05-27 01:08] LABS: Glucose,Whole Blood 154 mg/dL (75-99)
[2018-05-27 02:08] LABS: Glucose,Whole Blood 135 mg/dL (75-99)
[2018-05-27 03:11] LABS: Glucose,Whole Blood 123 mg/dL (75-99)
[2018-05-27 04:15] LABS: Glucose,Whole Blood 141 mg/dL (75-99)
[2018-05-27 04:32] LABS: Basophils % (A) 0 %; Eosinophils % (A) 0 %; HCT 33.2 % (39.0-53.0); HGB 11.1 gm/dL (13.0-17.5); Lymphocytes # (A) 1.2 k/uL (1.0-4.8); Lymphocytes % (A) 9 %; MCH 31.7 pg (25.0-35.0); MCHC 33.4 g/dL (31.0-37.0); Mean Platelet Volume 8.4; Monocytes # (A) 0.8 k/uL (0-1.0); Monocytes % (A) 6 %; Neutrophils # (A) 11.4 k/uL (1.3-7.7); Neutrophils % (A) 83 %; Platelet Count 108 k/uL (150-450); RBC 3.49 m/uL (4.30-5.90); RDW 12.4 % (11.5-15.5); WBC 13.7 k/uL (3.8-10.6)
[2018-05-27 04:43] LABS: INR 1.2 (<1.2); Partial Thromboplastin Time 27.7 sec (22.0-30.0); Prothrombin Time 11.8 sec (9.0-12.0)
[2018-05-27 05:31] LABS: Ionized Calcium 4.8 mg/dL (4.5-5.3)
[2018-05-27 06:03] LABS: ALT 39 U/L (21-72); AST 51 U/L (17-59); Albumin 3.3 g/dL (3.5-5.0); Alkaline Phosphatase 57 U/L (38-126); Anion Gap 8 mmol/L; Blood Urea Nitrogen 14 mg/dL (9-20); Calcium 8.5 mg/dL (8.4-10.2); Carbon Dioxide 25 mmol/L (22-30); Chloride 103 mmol/L (98-107); Glucose 140 mg/dL (74-99); Magnesium 1.9 mg/dL (1.6-2.3); Potassium 4.3 mmol/L (3.5-5.1); Sodium 136 mmol/L (137-145); Total Bilirubin 0.9 mg/dL (0.2-1.3); Total Protein 5.7 g/dL (6.3-8.2)
[2018-05-27] MEDS: ACETAMINOPHEN IV (For NPO) 1,000 MG in EMPTY BAG 1 BAG IVPB SCH ×3 (06:10→18:08)
[2018-05-27] MEDS: KETOROLAC 30 MG/ML 1 ML VIAL IVP SCH ×4 (06:11→23:58)
[2018-05-27 06:30] LABS: Glucose,Whole Blood 157 mg/dL (75-99)
--- NOTE | 2018-05-27 06:42 | XR ---
EXAMINATION TYPE: XR chest 1V portable DATE OF EXAM: 05/27/2018 HISTORY: Post Operative Cardiac Surgery. REFERENCE: Previous study dated 05/26/2018. FINDINGS: There has been a midline sternotomy. The patient has been extubated. The patient is NG tube is been removed. Right internal jugular sheath remains in place. A [place]-Marie catheter is present. It s tip is in the right main pulmonary artery. There is minimal residual left basilar atelectasis. The right lung is clear. Heart size upper limits of normal. No definite pleural fluid is seen.. IMPRESSION: IMPROVED AERATION, BOTH LUNGS.
[2018-05-27 07:30] LABS: Glucose,Whole Blood 147 mg/dL (75-99)
[2018-05-27] MEDS: ceFAZolin IN SWFI 2 GM/20 ML SYRINGE IVP SCH (07:44)
[2018-05-27] MEDS: HEPARIN SODIUM,PORCINE 5,000 UNIT/ML 1 ML VIAL SQ SCH ×3 (07:45→23:59)
[2018-05-27] MEDS: MAGNESIUM SULFATE-D5W PMX 1 GM in DEXTROSE/WATER 1 100ML.BAG IVPB SCH ×2 (07:46→09:05)
[2018-05-27 07:52] LABS: Glucose,Whole Blood 125 mg/dL (75-99)
[2018-05-27] MEDS: ONDANSETRON 4 MG/2 ML VIAL IVP PRN (08:18)
[2018-05-27] MEDS: IPRATROPIUM-ALBUTEROL 3 ML NEB INHALATION SCH ×4 (08:33→20:25)
--- NOTE | 2018-05-27 08:46 | P.PN ---
Subjective Progress Note Date: 05/27/18 Principal diagnosis: Postop day #1, status post four-vessel bypass grafting Progress note dated 05/27/2018 This is a 62-year-old male who is postop day #1, status post four-vessel bypass grafting. Currently, he is doing reasonably well but remains on a number different things including 6 L nasal cannula, lactated Ringer's at 50 mL an hour , insulin drip 4 units an hour and nitroglycerin drip at 5 mics per minute. He is doing about 1700 mL on his incentive spirometer. The patient has a history of CAD COPD, goal stage III, chronic nicotine dependence, chronic marijuana use , hypertension, hyperlipidemia, ischemic cardiomyopathy, and valvular heart disease in the form of mild mitral regurgitation and trace aortic insufficiency. The patient down denies any complaints today. Denies any chest pain chest discomfort palpitations fluttering in the chest. Denies any shortness of breath. He does have anterior chest pain on deep breathing consistent with his recent median sternotomy. The patient appears not to be any distress at this time. Objective - Vital Signs Vital signs: Vital Signs Temp 97.9 F 05/27/18 04:00 Pulse 87 05/27/18 08:33 Resp 20 05/27/18 07:30 BP 124/65 05/27/18 07:30 Pulse Ox 100 05/27/18 07:30 Intake & Output 05/26/18 05/27/18 05/27/18 18:59 06:59 18:59 Intake Total 596.255 2887.244 60.747 Output Total 2595 1162 45 Balance -2347.458 522.244 15.747 Weight 109 kg 115.8 kg Intake: IV 158 498 56 CO/CI 80 70 Lactated Ringers 1,000 ml 350 50 @ 50 mls/hr IV .Q20H OLE Rx#:[id number] Pressure Bag 45 78 6 Intake, IV Titration 89.542 366.244 4.747 Amount ACETAMINOPHEN IV (For NPO 100 ) 1,000 mg In Empty Bag 1 bag @ 400 mls/hr IVPB Q6HR OLE Rx#:[id number] Albumin Human 5% 250 ml 100 In Empty Bag 1 bag @ 250 mls/hr IVPB Q1HR PRN Rx#: [id number] Clevidipine Butyrate 25 12.200 135.734 mg In Empty Bag 1 bag @ 1 MG/HR 2 mls/hr IV .Q24H OLE Rx#:[id number] Insulin Regular 100 unit 4.53 30.510 4.747 In Sodium Chloride 0.9% 100 ml @ Per Protocol IV .Q0M OLE Rx#:[id number] Propofol 1,000 mg In 72.812 Empty Bag 1 bag @ Titrate IV .Q0M OLE Rx#: [id number] Oral 700 Tube Feeding 120 Output: Chest Tube Drainage 115 362 0 Left Pleural 5 52 0 Mediastinal x2 110 310 0 Urine 980 800 45 Estimated Blood Loss 1500 Other: Voiding Method Indwelling Catheter Indwelling Catheter ABP, PAP, CO, CI - Last Documented Arterial Blood Pressure 105/53 Pulmonary Artery Pressure 22/9 Cardiac Output 7.2 Cardiac Index 3.5 - Exam No acute distress, oriented 3. Nasal O2 in place. HEENT examination is grossly unremarkable. Mucous membranes are moist. No oral lesions. Neck supple. Full range of motion. No adenopathy thyromegaly or neck vein distention. Cardiovascular examination reveals regular rhythm rate. S1-S2 normal. No S3 or S4. No discernible murmur noted. Heart sounds are distant. Lungs reveal mostly clear breath sounds. Her sounds are equal bilaterally. A few scattered rhonchi noted. No wheezes or crackles. He complains of pain while taking a deep breath. Abdomen soft bowel sounds are heard. No masses or tenderness. Extremities are intact. No cyanosis clubbing or edema. Skin is without rash or lesion. Neurologic examination is brief but nonfocal. - Labs CBC & Chem 7: 05/27/18 04:30 05/27/18 04:17 Labs: Abnormal Lab Results - Last 24 Hours (Table) 05/18/18 05/26/18 05/26/18 Range/Units 09:01 08:36 10:10 WBC (3.8-10.6) k/uL RBC (4.30-5.90) m/uL Hgb (13.0-17.5) gm/dL Hct (39.0-53.0) % Plt Count (150-450) k/uL Neutrophils # (1.3-7.7) k/uL Monocytes # (0-1.0) k/uL INR (<1.2) APTT (22.0-30.0) sec ABG pH 7.29 L (7.35-7.45) ABG pCO2 49 H 61 H (35-45) mmHg ABG pO2 396 H 158 H (83-108) mmHg ABG HCO3 27 H 29 H (21-25) mmol/L ABG Total CO2 29 H 31 H (19-24) mmol/L ABG O2 Saturation 100.0 H 99.2 H (94-97) % ABG Hematocrit (34.0-46.0) % ABG Sodium (135-146) mmol/L ABG Potassium 4.8 H (3.4-4.5) mmol/L ABG Ionized Calcium (4.5-5.3) mg/dL ABG Glucose 176 H 190 H (75-99) mg/dL ABG Lactic Acid (0.5-1.6) mmol/L Hemoglobin (13.0-17.5) gm/dL Sodium (137-145) mmol/L Creatinine (0.66-1.25) mg/dL Glucose (74-99) mg/dL POC Glucose (mg/dL) (75-99) mg/dL Calcium (8.4-10.2) mg/dL Total Protein (6.3-8.2) g/dL Albumin (3.5-5.0) g/dL Arterial Blood Potassium 4.8 H (3.4-4.5) mmol/L Arterial Blood Glucose 176 H 190 H (75-99) mg/dL Crossmatch See Detail 05/26/18 05/26/18 05/26/18 Range/Units 11:04 11:16 11:43 WBC (3.8-10.6) k/uL RBC (4.30-5.90) m/uL Hgb (13.0-17.5) gm/dL Hct (39.0-53.0) % Plt Count (150-450) k/uL Neutrophils # (1.3-7.7) k/uL Monocytes # (0-1.0) k/uL INR (<1.2) APTT (22.0-30.0) sec ABG pH 7.31 L 7.34 L 7.34 L (7.35-7.45) ABG pCO2 54 H 46 H (35-45) mmHg ABG pO2 141 H 303 H 232 H (83-108) mmHg ABG HCO3 27 H (21-25) mmol/L ABG Total CO2 28 H 27 H 26 H (19-24) mmol/L ABG O2 Saturation 99.1 H 100.0 H 99.9 H (94-97) % ABG Hematocrit 33 L 32 L (34.0-46.0) % ABG Sodium 130 L 131 L 133 L (135-146) mmol/L ABG Potassium 6.9 H* 6.9 H* 6.3 H* (3.4-4.5) mmol/L ABG Ionized Calcium 4.3 L 4.1 L 4.2 L (4.5-5.3) mg/dL ABG Glucose 266 H 277 H 264 H (75-99) mg/dL ABG Lactic Acid 1.9 H (0.5-1.6) mmol/L Hemoglobin 11.2 L 10.7 L 10.5 L (13.0-17.5) gm/dL Sodium (137-145) mmol/L Creatinine (0.66-1.25) mg/dL Glucose (74-99) mg/dL POC Glucose (mg/dL) (75-99) mg/dL Calcium (8.4-10.2) mg/dL Total Protein (6.3-8.2) g/dL Albumin (3.5-5.0) g/dL Arterial Blood Potassium 6.9 H* 6.9 H* 6.3 H* (3.4-4.5) mmol/L Arterial Blood Glucose 266 H 277 H 264 H (75-99) mg/dL Crossmatch 05/26/18 05/26/18 05/26/18 Range/Units 12:00 12:44 14:10 WBC (3.8-10.6) k/uL RBC (4.30-5.90) m/uL Hgb (13.0-17.5) gm/dL Hct (39.0-53.0) % Plt Count (150-450) k/uL Neutrophils # (1.3-7.7) k/uL Monocytes # (0-1.0) k/uL INR (<1.2) APTT (22.0-30.0) sec ABG pH 7.32 L 7.30 L (7.35-7.45) ABG pCO2 46 H 51 H (35-45) mmHg ABG pO2 187 H 235 H (83-108) mmHg ABG HCO3 (21-25) mmol/L ABG Total CO2 25 H 27 H (19-24) mmol/L ABG O2 Saturation 99.5 H 99.9 H (94-97) % ABG Hematocrit 32 L (34.0-46.0) % ABG Sodium (135-146) mmol/L ABG Potassium 5.7 H 4.9 H (3.4-4.5) mmol/L ABG Ionized Calcium 4.2 L 4.1 L (4.5-5.3) mg/dL ABG Glucose 241 H 213 H (75-99) mg/dL ABG Lactic Acid 2.1 H 2.5 H* (0.5-1.6) mmol/L Hemoglobin 10.4 L 11.0 L (13.0-17.5) gm/dL Sodium (137-145) mmol/L Creatinine (0.66-1.25) mg/dL Glucose (74-99) mg/dL POC Glucose (mg/dL) 159 H (75-99) mg/dL Calcium (8.4-10.2) mg/dL Total Protein (6.3-8.2) g/dL Albumin (3.5-5.0) g/dL Arterial Blood Potassium 5.7 H 4.9 H (3.4-4.5) mmol/L Arterial Blood Glucose 241 H 213 H (75-99) mg/dL Crossmatch 05/26/18 05/26/18 05/26/18 Range/Units 14:10 14:10 14:10 WBC 13.1 H (3.8-10.6) k/uL RBC 3.18 L (4.30-5.90) m/uL Hgb 10.7 L D (13.0-17.5) gm/dL Hct 31.2 L (39.0-53.0) % Plt Count 90 L (150-450) k/uL Neutrophils # 10.9 H (1.3-7.7) k/uL Monocytes # (0-1.0) k/uL INR 1.2 H (<1.2) APTT 31.4 H (22.0-30.0) sec ABG pH (7.35-7.45) ABG pCO2 (35-45) mmHg ABG pO2 (83-108) mmHg ABG HCO3 (21-25) mmol/L ABG Total CO2 (19-24) mmol/L ABG O2 Saturation (94-97) % ABG Hematocrit (34.0-46.0) % ABG Sodium (135-146) mmol/L ABG Potassium (3.4-4.5) mmol/L ABG Ionized Calcium (4.5-5.3) mg/dL ABG Glucose (75-99) mg/dL ABG Lactic Acid (0.5-1.6) mmol/L Hemoglobin (13.0-17.5) gm/dL Sodium (137-145) mmol/L Creatinine 0.62 L (0.66-1.25) mg/dL Glucose 143 H (74-99) mg/dL POC Glucose (mg/dL) (75-99) mg/dL Calcium 7.8 L (8.4-10.2) mg/dL Total Protein 5.3 L (6.3-8.2) g/dL Albumin 3.2 L (3.5-5.0) g/dL Arterial Blood Potassium (3.4-4.5) mmol/L Arterial Blood Glucose (75-99) mg/dL Crossmatch 05/26/18 05/26/18 05/26/18 Range/Units 14:31 16:00 16:03 WBC 14.9 H (3.8-10.6) k/uL RBC 3.63 L (4.30-5.90) m/uL Hgb 12.0 L (13.0-17.5) gm/dL Hct 35.5 L (39.0-53.0) % Plt Count 122 L (150-450) k/uL Neutrophils # 12.1 H (1.3-7.7) k/uL Monocytes # (0-1.0) k/uL INR (<1.2) APTT (22.0-30.0) sec ABG pH 7.27 L (7.35-7.45) ABG pCO2 59 H (35-45) mmHg ABG pO2 374 H (83-108) mmHg ABG HCO3 27 H (21-25) mmol/L ABG Total CO2 29 H (19-24) mmol/L ABG O2 Saturation 100.0 H (94-97) % ABG Hematocrit (34.0-46.0) % ABG Sodium (135-146) mmol/L ABG Potassium (3.4-4.5) mmol/L ABG Ionized Calcium (4.5-5.3) mg/dL ABG Glucose (75-99) mg/dL ABG Lactic Acid (0.5-1.6) mmol/L Hemoglobin (13.0-17.5) gm/dL Sodium (137-145) mmol/L Creatinine (0.66-1.25) mg/dL Glucose (74-99) mg/dL POC Glucose (mg/dL) 144 H (75-99) mg/dL Calcium (8.4-10.2) mg/dL Total Protein (6.3-8.2) g/dL Albumin (3.5-5.0) g/dL Arterial Blood Potassium (3.4-4.5) mmol/L Arterial Blood Glucose (75-99) mg/dL Crossmatch 05/26/18 05/26/18 05/26/18 Range/Units 17:08 18:01 19:10 WBC (3.8-10.6) k/uL RBC (4.30-5.90) m/uL Hgb (13.0-17.5) gm/dL Hct (39.0-53.0) % Plt Count (150-450) k/uL Neutrophils # (1.3-7.7) k/uL Monocytes # (0-1.0) k/uL INR (<1.2) APTT (22.0-30.0) sec ABG pH 7.32 L (7.35-7.45) ABG pCO2 51 H (35-45) mmHg ABG pO2 (83-108) mmHg ABG HCO3 27 H (21-25) mmol/L ABG Total CO2 28 H (19-24) mmol/L ABG O2 Saturation (94-97) % ABG Hematocrit (34.0-46.0) % ABG Sodium (135-146) mmol/L ABG Potassium (3.4-4.5) mmol/L ABG Ionized Calcium (4.5-5.3) mg/dL ABG Glucose (75-99) mg/dL ABG Lactic Acid (0.5-1.6) mmol/L Hemoglobin (13.0-17.5) gm/dL Sodium (137-145) mmol/L Creatinine (0.66-1.25) mg/dL Glucose (74-99) mg/dL POC Glucose (mg/dL) 139 H 139 H (75-99) mg/dL Calcium (8.4-10.2) mg/dL Total Protein (6.3-8.2) g/dL Albumin (3.5-5.0) g/dL Arterial Blood Potassium (3.4-4.5) mmol/L Arterial Blood Glucose (75-99) mg/dL Crossmatch 05/26/18 05/26/18 05/26/18 Range/Units 19:11 19:13 20:02 WBC 15.2 H (3.8-10.6) k/uL RBC 3.51 L (4.30-5.90) m/uL Hgb 11.9 L (13.0-17.5) gm/dL Hct 34.4 L (39.0-53.0) % Plt Count 120 L (150-450) k/uL Neutrophils # 12.6 H (1.3-7.7) k/uL Monocytes # 1.1 H (0-1.0) k/uL INR (<1.2) APTT (22.0-30.0) sec ABG pH (7.35-7.45) ABG pCO2 (35-45) mmHg ABG pO2 (83-108) mmHg ABG HCO3 (21-25) mmol/L ABG Total CO2 (19-24) mmol/L ABG O2 Saturation (94-97) % ABG Hematocrit (34.0-46.0) % ABG Sodium (135-146) mmol/L ABG Potassium (3.4-4.5) mmol/L ABG Ionized Calcium (4.5-5.3) mg/dL ABG Glucose (75-99) mg/dL ABG Lactic Acid (0.5-1.6) mmol/L Hemoglobin (13.0-17.5) gm/dL Sodium (137-145) mmol/L Creatinine (0.66-1.25) mg/dL Glucose (74-99) mg/dL POC Glucose (mg/dL) 153 H 171 H (75-99) mg/dL Calcium (8.4-10.2) mg/dL Total Protein (6.3-8.2) g/dL Albumin (3.5-5.0) g/dL Arterial Blood Potassium (3.4-4.5) mmol/L Arterial Blood Glucose (75-99) mg/dL Crossmatch 05/26/18 05/26/18 05/26/18 Range/Units 20:58 21:52 23:03 WBC (3.8-10.6) k/uL RBC (4.30-5.90) m/uL Hgb (13.0-17.5) gm/dL Hct (39.0-53.0) % Plt Count (150-450) k/uL Neutrophils # (1.3-7.7) k/uL Monocytes # (0-1.0) k/uL INR (<1.2) APTT (22.0-30.0) sec ABG pH (7.35-7.45) ABG pCO2 (35-45) mmHg ABG pO2 (83-108) mmHg ABG HCO3 (21-25) mmol/L ABG Total CO2 (19-24) mmol/L ABG O2 Saturation (94-97) % ABG Hematocrit (34.0-46.0) % ABG Sodium (135-146) mmol/L ABG Potassium (3.4-4.5) mmol/L ABG Ionized Calcium (4.5-5.3) mg/dL ABG Glucose (75-99) mg/dL ABG Lactic Acid (0.5-1.6) mmol/L Hemoglobin (13.0-17.5) gm/dL Sodium (137-145) mmol/L Creatinine (0.66-1.25) mg/dL Glucose (74-99) mg/dL POC Glucose (mg/dL) 157 H 166 H 180 H (75-99) mg/dL Calcium (8.4-10.2) mg/dL Total Protein (6.3-8.2) g/dL Albumin (3.5-5.0) g/dL Arterial Blood Potassium (3.4-4.5) mmol/L Arterial Blood Glucose (75-99) mg/dL Crossmatch 05/27/18 05/27/18 05/27/18 Range/Units 00:05 01:04 02:07 WBC (3.8-10.6) k/uL RBC (4.30-5.90) m/uL Hgb (13.0-17.5) gm/dL Hct (39.0-53.0) % Plt Count (150-450) k/uL Neutrophils # (1.3-7.7) k/uL Monocytes # (0-1.0) k/uL INR (<1.2) APTT (22.0-30.0) sec ABG pH (7.35-7.45) ABG pCO2 (35-45) mmHg ABG pO2 (83-108) mmHg ABG HCO3 (21-25) mmol/L ABG Total CO2 (19-24) mmol/L ABG O2 Saturation (94-97) % ABG Hematocrit (34.0-46.0) % ABG Sodium (135-146) mmol/L ABG Potassium (3.4-4.5) mmol/L ABG Ionized Calcium (4.5-5.3) mg/dL ABG Glucose (75-99) mg/dL ABG Lactic Acid (0.5-1.6) mmol/L Hemoglobin (13.0-17.5) gm/dL Sodium (137-145) mmol/L Creatinine (0.66-1.25) mg/dL Glucose (74-99) mg/dL POC Glucose (mg/dL) 136 H 154 H 135 H (75-99) mg/dL Calcium (8.4-10.2) mg/dL Total Protein (6.3-8.2) g/dL Albumin (3.5-5.0) g/dL Arterial Blood Potassium (3.4-4.5) mmol/L Arterial Blood Glucose (75-99) mg/dL Crossmatch 05/27/18 05/27/18 05/27/18 Range/Units 03:09 04:13 04:17 WBC (3.8-10.6) k/uL RBC (4.30-5.90) m/uL Hgb (13.0-17.5) gm/dL Hct (39.0-53.0) % Plt Count (150-450) k/uL Neutrophils # (1.3-7.7) k/uL Monocytes # (0-1.0) k/uL INR (<1.2) APTT (22.0-30.0) sec ABG pH (7.35-7.45) ABG pCO2 (35-45) mmHg ABG pO2 (83-108) mmHg ABG HCO3 (21-25) mmol/L ABG Total CO2 (19-24) mmol/L ABG O2 Saturation (94-97) % ABG Hematocrit (34.0-46.0) % ABG Sodium (135-146) mmol/L ABG Potassium (3.4-4.5) mmol/L ABG Ionized Calcium (4.5-5.3) mg/dL ABG Glucose (75-99) mg/dL ABG Lactic Acid (0.5-1.6) mmol/L Hemoglobin (13.0-17.5) gm/dL Sodium 136 L (137-145) mmol/L Creatinine 0.50 L (0.66-1.25) mg/dL Glucose 140 H (74-99) mg/dL POC Glucose (mg/dL) 123 H 141 H (75-99) mg/dL Calcium (8.4-10.2) mg/dL Total Protein 5.7 L (6.3-8.2) g/dL Albumin 3.3 L (3.5-5.0) g/dL Arterial Blood Potassium (3.4-4.5) mmol/L Arterial Blood Glucose (75-99) mg/dL Crossmatch 05/27/18 05/27/18 05/27/18 Range/Units 04:30 04:30 06:16 WBC 13.7 H (3.8-10.6) k/uL RBC 3.49 L (4.30-5.90) m/uL Hgb 11.1 L (13.0-17.5) gm/dL Hct 33.2 L (39.0-53.0) % Plt Count 108 L (150-450) k/uL Neutrophils # 11.4 H (1.3-7.7) k/uL Monocytes # (0-1.0) k/uL INR 1.2 H (<1.2) APTT (22.0-30.0) sec ABG pH (7.35-7.45) ABG pCO2 (35-45) mmHg ABG pO2 (83-108) mmHg ABG HCO3 (21-25) mmol/L ABG Total CO2 (19-24) mmol/L ABG O2 Saturation (94-97) % ABG Hematocrit (34.0-46.0) % ABG Sodium (135-146) mmol/L ABG Potassium (3.4-4.5) mmol/L ABG Ionized Calcium (4.5-5.3) mg/dL ABG Glucose (75-99) mg/dL ABG Lactic Acid (0.5-1.6) mmol/L Hemoglobin (13.0-17.5) gm/dL Sodium (137-145) mmol/L Creatinine (0.66-1.25) mg/dL Glucose (74-99) mg/dL POC Glucose (mg/dL) 157 H (75-99) mg/dL Calcium (8.4-10.2) mg/dL Total Protein (6.3-8.2) g/dL Albumin (3.5-5.0) g/dL Arterial Blood Potassium (3.4-4.5) mmol/L Arterial Blood Glucose (75-99) mg/dL Crossmatch 05/27/18 05/27/18 Range/Units 07:23 07:51 WBC (3.8-10.6) k/uL RBC (4.30-5.90) m/uL Hgb (13.0-17.5) gm/dL Hct (39.0-53.0) % Plt Count (150-450) k/uL Neutrophils # (1.3-7.7) k/uL Monocytes # (0-1.0) k/uL INR (<1.2) APTT (22.0-30.0) sec ABG pH (7.35-7.45) ABG pCO2 (35-45) mmHg ABG pO2 (83-108) mmHg ABG HCO3 (21-25) mmol/L ABG Total CO2 (19-24) mmol/L ABG O2 Saturation (94-97) % ABG Hematocrit (34.0-46.0) % ABG Sodium (135-146) mmol/L ABG Potassium (3.4-4.5) mmol/L ABG Ionized Calcium (4.5-5.3) mg/dL ABG Glucose (75-99) mg/dL ABG Lactic Acid (0.5-1.6) mmol/L Hemoglobin (13.0-17.5) gm/dL Sodium (137-145) mmol/L Creatinine (0.66-1.25) mg/dL Glucose (74-99) mg/dL POC Glucose (mg/dL) 147 H 125 H (75-99) mg/dL Calcium (8.4-10.2) mg/dL Total Protein (6.3-8.2) g/dL Albumin (3.5-5.0) g/dL Arterial Blood Potassium (3.4-4.5) mmol/L Arterial Blood Glucose (75-99) mg/dL Crossmatch Assessment and Plan Assessment: Assessment Postop day #1, status post two-vessel bypass grafting including a REDD to LAD and saphenous vein graft to diagonal branch Routine postoperative ventilator management GOLD stage III COPD. FEV1 1.6 L or 45% of predicted History of chronic nicotine dependence History of chronic marijuana use History of essential hypertension History of hyperlipidemia. Ischemic cardiomyopathy, ejection fraction 45-50% Valvular heart disease in the form of mild mitral regurgitation and trace aortic insufficiency Plan: Plan dated 05/27/2018 We encouraged the patient to continue take deep breaths coughing clear secretions. We also recommend him using the incentive spirometer every hour. The patient remains on O2 6 L. Chest x-rays reviewed. He is getting lactated Ringer's at 50 mL now insulin drip 4 units an hour and nitroglycerin at 5 mcg/ m. Chest x-ray does show improved aeration of both lungs. White count 13.7 hemoglobin 11.1 hematocrit 23.2 and platelet count 108,000. PT and PTT are normal. Sodium 136. Potassium chloride CO2 anion gap all normal. BUN and creatinine is 14 and 0.5 respectively. Medications are reviewed. The patient is to remain on breathing treatments at this time. Critical care time 33 minutes Time with Patient: Greater than 30
[2018-05-27] MEDS ORDERED: METOPROLOL TARTRATE 12.5 MG TAB PO SCH (09:00)
[2018-05-27] MEDS ORDERED: PANTOPRAZOLE 40 MG/10 ML VIAL IVP SCH (09:00)
[2018-05-27] MEDS: ASPIRIN 325 MG TAB PO SCH (09:01)
[2018-05-27] MEDS: ATORVASTATIN 40 MG TAB PO SCH (09:01)
[2018-05-27] MEDS: CLOPIDOGREL 75 MG TAB PO SCH (09:01)
[2018-05-27] MEDS: MUPIROCIN 2% OINT 22 GM TUBE NASAL SCH ×2 (09:01→20:14)
[2018-05-27] MEDS: LACTATED RINGERS 1,000 ML IV SCH (09:02)
[2018-05-27 09:05] LABS: Glucose,Whole Blood 186 mg/dL (75-99)
[2018-05-27] MEDS ORDERED: FUROSEMIDE 10 MG/ML 2 ML VIAL IV ONE (09:37)
[2018-05-27 10:04] LABS: Glucose,Whole Blood 190 mg/dL (75-99)
--- NOTE | 2018-05-27 10:17 | PN ---
PROGRESS NOTE Mr. Lara is a 62-year-old male who presented to undergo coronary artery bypass grafting. He is extubated, feeling well this morning. He has some soreness in the chest. Continued to be in sinus mechanism. He had no further episode of hypertension. He has no significant dyspnea. He continues to be at this time on aspirin once a day, Lipitor 40 mg daily, metoprolol tartrate 12.5 mg twice a day. PHYSICAL EXAMINATION: Blood pressure 124/60 with a heart rate in the 80s. Lungs mild decrease in breath sounds in the bases. HEART: Regular rate and rhythm, S1, S2. No S3. No rub appreciated. ABDOMEN: Soft. Nontender. EXTREMITIES: No significant edema. LAB DATA: Revealed hemoglobin of 11.1, white blood cell of 13.7, BUN and creatinine 14 and 0.5, potassium 4.3. IMPRESSION: 1. Status post coronary artery bypass grafting stable. 2. Hyperlipidemia. 3. History of chronic obstructive pulmonary disease with history of chronic tobacco use. 4. Mild cardiomyopathy. RECOMMENDATION: From the cardiac standpoint, he is doing well. Continue to increase his level of activity. Continue incentive spirometry and depending on his progress, further recommendations will be made. MMODL / IJN: [id number] /
--- NOTE | 2018-05-27 10:22 | P.PN ---
Subjective Progress Note Date: 05/27/18 Principal diagnosis: Coronary artery disease. Previous medical history of hypertension, severe COPD with a preoperative FEV1 of 45% of predicted, previous tobacco dependence, marijuana use, hyperlipidemia, and family history of coronary artery disease, obesity. POD #1 coronary artery bypass grafting 2 vessels, left internal mammary artery to left anterior descending artery, reverse saphenous vein graft to diagonal artery. Patch angioplasty of left anterior descending artery. Endoscopic vein harvest of the left greater saphenous vein. Intraoperative transesophageal echocardiogram and epi-aortic ultrasound. Patient's currently sitting up in the chair in no acute distress. States pain is controlled on ordered pain medication. Was nauseous this morning which was relieved with IV Zofran. No new complaints. Hemodynamically stable. Objective - Vital Signs Vital signs: Vital Signs Temp 97.9 F 05/27/18 04:00 Pulse 92 05/27/18 08:47 Resp 20 05/27/18 07:30 BP 124/65 05/27/18 07:30 Pulse Ox 100 05/27/18 07:30 Intake & Output 05/26/18 05/27/18 05/27/18 18:59 06:59 18:59 Intake Total 281.093 7818.244 63.205 Output Total 2595 1162 45 Balance -2347.458 522.244 18.205 Weight 109 kg 115.8 kg Intake: IV 158 498 56 CO/CI 80 70 Lactated Ringers 1,000 ml 350 50 @ 50 mls/hr IV .Q20H [facility] Rx#:[id number] Pressure Bag 45 78 6 Intake, IV Titration 89.542 366.244 7.205 Amount ACETAMINOPHEN IV (For NPO 100 ) 1,000 mg In Empty Bag 1 bag @ 400 mls/hr IVPB Q6HR [facility] Rx#:[id number] Albumin Human 5% 250 ml 100 In Empty Bag 1 bag @ 250 mls/hr IVPB Q1HR PRN Rx#: [id number] Clevidipine Butyrate 25 12.200 135.734 mg In Empty Bag 1 bag @ 1 MG/HR 2 mls/hr IV .Q24H [facility] Rx#:[id number] Insulin Regular 100 unit 4.53 30.510 7.205 In Sodium Chloride 0.9% 100 ml @ Per Protocol IV .Q0M [facility] Rx#:[id number] Propofol 1,000 mg In 72.812 Empty Bag 1 bag @ Titrate IV .Q0M [facility] Rx#: [id number] Oral 700 Tube Feeding 120 Output: Chest Tube Drainage 115 362 0 Left Pleural 5 52 0 Mediastinal x2 110 310 0 Urine 980 800 45 Estimated Blood Loss 1500 Other: Voiding Method Indwelling Catheter Indwelling Catheter ABP, PAP, CO, CI - Last Documented Arterial Blood Pressure 105/53 Pulmonary Artery Pressure 22/9 Cardiac Output 7.2 Cardiac Index 3.5 - Constitutional General appearance: Present: cooperative, no acute distress, obese - Respiratory Details: Lungs sounds diminished bilaterally. Respirations even, nonlabored. Currently on 5 L nasal cannula with oxygen saturations 98%. Able to achieve 2000 mL on his incentive spirometry. Effective cough. Mediastinal chest tube to continuous wall suction, 220 mL serosanguineous drainage overnight, 440 mL since surgery. Left pleural chest tube to continuous wall suction, 40 mL serosanguineous drainage overnight, 45 mL since surgery. No air leaks present. - Cardiovascular Details: S1, S2 present, positive rub. Regular rate and rhythm, sinus rhythm on telemetry. Sternum stable. A/V epicardial pacemaker wires present, grounded. Palpable peripheral pulses bilaterally. No edema present. No calf pain or tenderness noted. Right internal jugular [place], right radial arterial line present. Last CO/CI 7.2/3.2 and no inotropes. Heart hugger in place with patient demonstrating appropriate use. Antiembolism stockings, SCDs present. - Gastrointestinal Gastrointestinal Comment(s): Abdomen soft, nontender, nondistended, obese. Hypoactive bowel sounds present 4 quadrants. Tolerating clear liquids. Positive belching, negative flatus. - Genitourinary Genitourinary Comment(s): Hodge present draining clear, yellow urine. Output 50-75 mL/h overnight. - Integumentary Integumentary Comment(s): Skin is warm and dry with evidence of good perfusion. Anterior chest incision well approximated and covered with cover dry intact dressing. Left lower extremity EVH site well approximated. - Neurologic Neurologic: Present: CNII-XII intact - Musculoskeletal Musculoskeletal: Present: gait normal, strength equal bilaterally - Psychiatric Psychiatric: Present: A&O x's 3, appropriate affect, intact judgment & insight - Allied health notes Allied health notes reviewed: nursing - Labs CBC & Chem 7: 05/27/18 04:30 07/28/18 04:17 Labs: Abnormal Lab Results - Last 24 Hours (Table) 05/18/18 05/26/18 05/26/18 Range/Units 09:01 10:10 11:04 WBC (3.8-10.6) k/uL RBC (4.30-5.90) m/uL Hgb (13.0-17.5) gm/dL Hct (39.0-53.0) % Plt Count (150-450) k/uL Neutrophils # (1.3-7.7) k/uL Monocytes # (0-1.0) k/uL INR (<1.2) APTT (22.0-30.0) sec ABG pH 7.29 L 7.31 L (7.35-7.45) ABG pCO2 61 H 54 H (35-45) mmHg ABG pO2 158 H 141 H (83-108) mmHg ABG HCO3 29 H 27 H (21-25) mmol/L ABG Total CO2 31 H 28 H (19-24) mmol/L ABG O2 Saturation 99.2 H 99.1 H (94-97) % ABG Hematocrit (34.0-46.0) % ABG Sodium 130 L (135-146) mmol/L ABG Potassium 4.8 H 6.9 H* (3.4-4.5) mmol/L ABG Ionized Calcium 4.3 L (4.5-5.3) mg/dL ABG Glucose 190 H 266 H (75-99) mg/dL ABG Lactic Acid (0.5-1.6) mmol/L Hemoglobin 11.2 L (13.0-17.5) gm/dL Sodium (137-145) mmol/L Creatinine (0.66-1.25) mg/dL Glucose (74-99) mg/dL POC Glucose (mg/dL) (75-99) mg/dL Calcium (8.4-10.2) mg/dL Total Protein (6.3-8.2) g/dL Albumin (3.5-5.0) g/dL Arterial Blood Potassium 4.8 H 6.9 H* (3.4-4.5) mmol/L Arterial Blood Glucose 190 H 266 H (75-99) mg/dL Crossmatch See Detail 05/26/18 05/26/18 05/26/18 Range/Units 11:16 11:43 12:00 WBC (3.8-10.6) k/uL RBC (4.30-5.90) m/uL Hgb (13.0-17.5) gm/dL Hct (39.0-53.0) % Plt Count (150-450) k/uL Neutrophils # (1.3-7.7) k/uL Monocytes # (0-1.0) k/uL INR (<1.2) APTT (22.0-30.0) sec ABG pH 7.34 L 7.34 L 7.32 L (7.35-7.45) ABG pCO2 46 H 46 H (35-45) mmHg ABG pO2 303 H 232 H 187 H (83-108) mmHg ABG HCO3 (21-25) mmol/L ABG Total CO2 27 H 26 H 25 H (19-24) mmol/L ABG O2 Saturation 100.0 H 99.9 H 99.5 H (94-97) % ABG Hematocrit 33 L 32 L 32 L (34.0-46.0) % ABG Sodium 131 L 133 L (135-146) mmol/L ABG Potassium 6.9 H* 6.3 H* 5.7 H (3.4-4.5) mmol/L ABG Ionized Calcium 4.1 L 4.2 L 4.2 L (4.5-5.3) mg/dL ABG Glucose 277 H 264 H 241 H (75-99) mg/dL ABG Lactic Acid 1.9 H 2.1 H (0.5-1.6) mmol/L Hemoglobin 10.7 L 10.5 L 10.4 L (13.0-17.5) gm/dL Sodium (137-145) mmol/L Creatinine (0.66-1.25) mg/dL Glucose (74-99) mg/dL POC Glucose (mg/dL) (75-99) mg/dL Calcium (8.4-10.2) mg/dL Total Protein (6.3-8.2) g/dL Albumin (3.5-5.0) g/dL Arterial Blood Potassium 6.9 H* 6.3 H* 5.7 H (3.4-4.5) mmol/L Arterial Blood Glucose 277 H 264 H 241 H (75-99) mg/dL Crossmatch 05/26/18 05/26/18 05/26/18 Range/Units 12:44 14:10 14:10 WBC 13.1 H (3.8-10.6) k/uL RBC 3.18 L (4.30-5.90) m/uL Hgb 10.7 L D (13.0-17.5) gm/dL Hct 31.2 L (39.0-53.0) % Plt Count 90 L (150-450) k/uL Neutrophils # 10.9 H (1.3-7.7) k/uL Monocytes # (0-1.0) k/uL INR (<1.2) APTT (22.0-30.0) sec ABG pH 7.30 L (7.35-7.45) ABG pCO2 51 H (35-45) mmHg ABG pO2 235 H (83-108) mmHg ABG HCO3 (21-25) mmol/L ABG Total CO2 27 H (19-24) mmol/L ABG O2 Saturation 99.9 H (94-97) % ABG Hematocrit (34.0-46.0) % ABG Sodium (135-146) mmol/L ABG Potassium 4.9 H (3.4-4.5) mmol/L ABG Ionized Calcium 4.1 L (4.5-5.3) mg/dL ABG Glucose 213 H (75-99) mg/dL ABG Lactic Acid 2.5 H* (0.5-1.6) mmol/L Hemoglobin 11.0 L (13.0-17.5) gm/dL Sodium (137-145) mmol/L Creatinine (0.66-1.25) mg/dL Glucose (74-99) mg/dL POC Glucose (mg/dL) 159 H (75-99) mg/dL Calcium (8.4-10.2) mg/dL Total Protein (6.3-8.2) g/dL Albumin (3.5-5.0) g/dL Arterial Blood Potassium 4.9 H (3.4-4.5) mmol/L Arterial Blood Glucose 213 H (75-99) mg/dL Crossmatch 05/26/18 05/26/18 05/26/18 Range/Units 14:10 14:10 14:31 WBC (3.8-10.6) k/uL RBC (4.30-5.90) m/uL Hgb (13.0-17.5) gm/dL Hct (39.0-53.0) % Plt Count (150-450) k/uL Neutrophils # (1.3-7.7) k/uL Monocytes # (0-1.0) k/uL INR 1.2 H (<1.2) APTT 31.4 H (22.0-30.0) sec ABG pH 7.27 L (7.35-7.45) ABG pCO2 59 H (35-45) mmHg ABG pO2 374 H (83-108) mmHg ABG HCO3 27 H (21-25) mmol/L ABG Total CO2 29 H (19-24) mmol/L ABG O2 Saturation 100.0 H (94-97) % ABG Hematocrit (34.0-46.0) % ABG Sodium (135-146) mmol/L ABG Potassium (3.4-4.5) mmol/L ABG Ionized Calcium (4.5-5.3) mg/dL ABG Glucose (75-99) mg/dL ABG Lactic Acid (0.5-1.6) mmol/L Hemoglobin (13.0-17.5) gm/dL Sodium (137-145) mmol/L Creatinine 0.62 L (0.66-1.25) mg/dL Glucose 143 H (74-99) mg/dL POC Glucose (mg/dL) (75-99) mg/dL Calcium 7.8 L (8.4-10.2) mg/dL Total Protein 5.3 L (6.3-8.2) g/dL Albumin 3.2 L (3.5-5.0) g/dL Arterial Blood Potassium (3.4-4.5) mmol/L Arterial Blood Glucose (75-99) mg/dL Crossmatch 05/26/18 05/26/18 05/26/18 Range/Units 16:00 16:03 17:08 WBC 14.9 H (3.8-10.6) k/uL RBC 3.63 L (4.30-5.90) m/uL Hgb 12.0 L (13.0-17.5) gm/dL Hct 35.5 L (39.0-53.0) % Plt Count 122 L (150-450) k/uL Neutrophils # 12.1 H (1.3-7.7) k/uL Monocytes # (0-1.0) k/uL INR (<1.2) APTT (22.0-30.0) sec ABG pH (7.35-7.45) ABG pCO2 (35-45) mmHg ABG pO2 (83-108) mmHg ABG HCO3 (21-25) mmol/L ABG Total CO2 (19-24) mmol/L ABG O2 Saturation (94-97) % ABG Hematocrit (34.0-46.0) % ABG Sodium (135-146) mmol/L ABG Potassium (3.4-4.5) mmol/L ABG Ionized Calcium (4.5-5.3) mg/dL ABG Glucose (75-99) mg/dL ABG Lactic Acid (0.5-1.6) mmol/L Hemoglobin (13.0-17.5) gm/dL Sodium (137-145) mmol/L Creatinine (0.66-1.25) mg/dL Glucose (74-99) mg/dL POC Glucose (mg/dL) 144 H 139 H (75-99) mg/dL Calcium (8.4-10.2) mg/dL Total Protein (6.3-8.2) g/dL Albumin (3.5-5.0) g/dL Arterial Blood Potassium (3.4-4.5) mmol/L Arterial Blood Glucose (75-99) mg/dL Crossmatch 05/26/18 05/26/18 05/26/18 Range/Units 18:01 19:10 19:11 WBC (3.8-10.6) k/uL RBC (4.30-5.90) m/uL Hgb (13.0-17.5) gm/dL Hct (39.0-53.0) % Plt Count (150-450) k/uL Neutrophils # (1.3-7.7) k/uL Monocytes # (0-1.0) k/uL INR (<1.2) APTT (22.0-30.0) sec ABG pH 7.32 L (7.35-7.45) ABG pCO2 51 H (35-45) mmHg ABG pO2 (83-108) mmHg ABG HCO3 27 H (21-25) mmol/L ABG Total CO2 28 H (19-24) mmol/L ABG O2 Saturation (94-97) % ABG Hematocrit (34.0-46.0) % ABG Sodium (135-146) mmol/L ABG Potassium (3.4-4.5) mmol/L ABG Ionized Calcium (4.5-5.3) mg/dL ABG Glucose (75-99) mg/dL ABG Lactic Acid (0.5-1.6) mmol/L Hemoglobin (13.0-17.5) gm/dL Sodium (137-145) mmol/L Creatinine (0.66-1.25) mg/dL Glucose (74-99) mg/dL POC Glucose (mg/dL) 139 H 153 H (75-99) mg/dL Calcium (8.4-10.2) mg/dL Total Protein (6.3-8.2) g/dL Albumin (3.5-5.0) g/dL Arterial Blood Potassium (3.4-4.5) mmol/L Arterial Blood Glucose (75-99) mg/dL Crossmatch 05/26/18 05/26/18 05/26/18 Range/Units 19:13 20:02 20:58 WBC 15.2 H (3.8-10.6) k/uL RBC 3.51 L (4.30-5.90) m/uL Hgb 11.9 L (13.0-17.5) gm/dL Hct 34.4 L (39.0-53.0) % Plt Count 120 L (150-450) k/uL Neutrophils # 12.6 H (1.3-7.7) k/uL Monocytes # 1.1 H (0-1.0) k/uL INR (<1.2) APTT (22.0-30.0) sec ABG pH (7.35-7.45) ABG pCO2 (35-45) mmHg ABG pO2 (83-108) mmHg ABG HCO3 (21-25) mmol/L ABG Total CO2 (19-24) mmol/L ABG O2 Saturation (94-97) % ABG Hematocrit (34.0-46.0) % ABG Sodium (135-146) mmol/L ABG Potassium (3.4-4.5) mmol/L ABG Ionized Calcium (4.5-5.3) mg/dL ABG Glucose (75-99) mg/dL ABG Lactic Acid (0.5-1.6) mmol/L Hemoglobin (13.0-17.5) gm/dL Sodium (137-145) mmol/L Creatinine (0.66-1.25) mg/dL Glucose (74-99) mg/dL POC Glucose (mg/dL) 171 H 157 H (75-99) mg/dL Calcium (8.4-10.2) mg/dL Total Protein (6.3-8.2) g/dL Albumin (3.5-5.0) g/dL Arterial Blood Potassium (3.4-4.5) mmol/L Arterial Blood Glucose (75-99) mg/dL Crossmatch 05/26/18 05/26/18 05/27/18 Range/Units 21:52 23:03 00:05 WBC (3.8-10.6) k/uL RBC (4.30-5.90) m/uL Hgb (13.0-17.5) gm/dL Hct (39.0-53.0) % Plt Count (150-450) k/uL Neutrophils # (1.3-7.7) k/uL Monocytes # (0-1.0) k/uL INR (<1.2) APTT (22.0-30.0) sec ABG pH (7.35-7.45) ABG pCO2 (35-45) mmHg ABG pO2 (83-108) mmHg ABG HCO3 (21-25) mmol/L ABG Total CO2 (19-24) mmol/L ABG O2 Saturation (94-97) % ABG Hematocrit (34.0-46.0) % ABG Sodium (135-146) mmol/L ABG Potassium (3.4-4.5) mmol/L ABG Ionized Calcium (4.5-5.3) mg/dL ABG Glucose (75-99) mg/dL ABG Lactic Acid (0.5-1.6) mmol/L Hemoglobin (13.0-17.5) gm/dL Sodium (137-145) mmol/L Creatinine (0.66-1.25) mg/dL Glucose (74-99) mg/dL POC Glucose (mg/dL) 166 H 180 H 136 H (75-99) mg/dL Calcium (8.4-10.2) mg/dL Total Protein (6.3-8.2) g/dL Albumin (3.5-5.0) g/dL Arterial Blood Potassium (3.4-4.5) mmol/L Arterial Blood Glucose (75-99) mg/dL Crossmatch 05/27/18 05/27/18 05/27/18 Range/Units 01:04 02:07 03:09 WBC (3.8-10.6) k/uL RBC (4.30-5.90) m/uL Hgb (13.0-17.5) gm/dL Hct (39.0-53.0) % Plt Count (150-450) k/uL Neutrophils # (1.3-7.7) k/uL Monocytes # (0-1.0) k/uL INR (<1.2) APTT (22.0-30.0) sec ABG pH (7.35-7.45) ABG pCO2 (35-45) mmHg ABG pO2 (83-108) mmHg ABG HCO3 (21-25) mmol/L ABG Total CO2 (19-24) mmol/L ABG O2 Saturation (94-97) % ABG Hematocrit (34.0-46.0) % ABG Sodium (135-146) mmol/L ABG Potassium (3.4-4.5) mmol/L ABG Ionized Calcium (4.5-5.3) mg/dL ABG Glucose (75-99) mg/dL ABG Lactic Acid (0.5-1.6) mmol/L Hemoglobin (13.0-17.5) gm/dL Sodium (137-145) mmol/L Creatinine (0.66-1.25) mg/dL Glucose (74-99) mg/dL POC Glucose (mg/dL) 154 H 135 H 123 H (75-99) mg/dL Calcium (8.4-10.2) mg/dL Total Protein (6.3-8.2) g/dL Albumin (3.5-5.0) g/dL Arterial Blood Potassium (3.4-4.5) mmol/L Arterial Blood Glucose (75-99) mg/dL Crossmatch 05/27/18 05/27/18 05/27/18 Range/Units 04:13 04:17 04:30 WBC 13.7 H (3.8-10.6) k/uL RBC 3.49 L (4.30-5.90) m/uL Hgb 11.1 L (13.0-17.5) gm/dL Hct 33.2 L (39.0-53.0) % Plt Count 108 L (150-450) k/uL Neutrophils # 11.4 H (1.3-7.7) k/uL Monocytes # (0-1.0) k/uL INR (<1.2) APTT (22.0-30.0) sec ABG pH (7.35-7.45) ABG pCO2 (35-45) mmHg ABG pO2 (83-108) mmHg ABG HCO3 (21-25) mmol/L ABG Total CO2 (19-24) mmol/L ABG O2 Saturation (94-97) % ABG Hematocrit (34.0-46.0) % ABG Sodium (135-146) mmol/L ABG Potassium (3.4-4.5) mmol/L ABG Ionized Calcium (4.5-5.3) mg/dL ABG Glucose (75-99) mg/dL ABG Lactic Acid (0.5-1.6) mmol/L Hemoglobin (13.0-17.5) gm/dL Sodium 136 L (137-145) mmol/L Creatinine 0.50 L (0.66-1.25) mg/dL Glucose 140 H (74-99) mg/dL POC Glucose (mg/dL) 141 H (75-99) mg/dL Calcium (8.4-10.2) mg/dL Total Protein 5.7 L (6.3-8.2) g/dL Albumin 3.3 L (3.5-5.0) g/dL Arterial Blood Potassium (3.4-4.5) mmol/L Arterial Blood Glucose (75-99) mg/dL Crossmatch 05/27/18 05/27/18 05/27/18 Range/Units 04:30 06:16 07:23 WBC (3.8-10.6) k/uL RBC (4.30-5.90) m/uL Hgb (13.0-17.5) gm/dL Hct (39.0-53.0) % Plt Count (150-450) k/uL Neutrophils # (1.3-7.7) k/uL Monocytes # (0-1.0) k/uL INR 1.2 H (<1.2) APTT (22.0-30.0) sec ABG pH (7.35-7.45) ABG pCO2 (35-45) mmHg ABG pO2 (83-108) mmHg ABG HCO3 (21-25) mmol/L ABG Total CO2 (19-24) mmol/L ABG O2 Saturation (94-97) % ABG Hematocrit (34.0-46.0) % ABG Sodium (135-146) mmol/L ABG Potassium (3.4-4.5) mmol/L ABG Ionized Calcium (4.5-5.3) mg/dL ABG Glucose (75-99) mg/dL ABG Lactic Acid (0.5-1.6) mmol/L Hemoglobin (13.0-17.5) gm/dL Sodium (137-145) mmol/L Creatinine (0.66-1.25) mg/dL Glucose (74-99) mg/dL POC Glucose (mg/dL) 157 H 147 H (75-99) mg/dL Calcium (8.4-10.2) mg/dL Total Protein (6.3-8.2) g/dL Albumin (3.5-5.0) g/dL Arterial Blood Potassium (3.4-4.5) mmol/L Arterial Blood Glucose (75-99) mg/dL Crossmatch 05/27/18 05/27/18 Range/Units 07:51 09:03 WBC (3.8-10.6) k/uL RBC (4.30-5.90) m/uL Hgb (13.0-17.5) gm/dL Hct (39.0-53.0) % Plt Count (150-450) k/uL Neutrophils # (1.3-7.7) k/uL Monocytes # (0-1.0) k/uL INR (<1.2) APTT (22.0-30.0) sec ABG pH (7.35-7.45) ABG pCO2 (35-45) mmHg ABG pO2 (83-108) mmHg ABG HCO3 (21-25) mmol/L ABG Total CO2 (19-24) mmol/L ABG O2 Saturation (94-97) % ABG Hematocrit (34.0-46.0) % ABG Sodium (135-146) mmol/L ABG Potassium (3.4-4.5) mmol/L ABG Ionized Calcium (4.5-5.3) mg/dL ABG Glucose (75-99) mg/dL ABG Lactic Acid (0.5-1.6) mmol/L Hemoglobin (13.0-17.5) gm/dL Sodium (137-145) mmol/L Creatinine (0.66-1.25) mg/dL Glucose (74-99) mg/dL POC Glucose (mg/dL) 125 H 186 H (75-99) mg/dL Calcium (8.4-10.2) mg/dL Total Protein (6.3-8.2) g/dL Albumin (3.5-5.0) g/dL Arterial Blood Potassium (3.4-4.5) mmol/L Arterial Blood Glucose (75-99) mg/dL Crossmatch - Imaging and Cardiology Chest x-ray: report reviewed, image reviewed Assessment and Plan (1) Coronary artery disease Current Visit: Yes Status: Chronic Code(s): I25.10 - ATHSCL HEART DISEASE OF [place] CORONARY ARTERY W/O ANG PCTRS SNOMED Code(s): 26768856 (2) COPD (chronic obstructive pulmonary disease) Current Visit: Yes Status: Chronic Code(s): J44.9 - CHRONIC OBSTRUCTIVE PULMONARY DISEASE, UNSPECIFIED SNOMED Code(s): 79629814 (3) Family history of coronary artery disease in father Current Visit: Yes Status: Chronic Code(s): Z82.49 - FAMILY HX OF [place] HEART DIS AND OTH DIS OF THE CIRC SYS SNOMED Code(s): 726353966 (4) Hyperlipidemia Current Visit: Yes Status: Chronic Code(s): E78.5 - HYPERLIPIDEMIA, UNSPECIFIED SNOMED Code(s): 54783475 (5) Hypertension Current Visit: Yes Status: Chronic Code(s): I10 - ESSENTIAL (PRIMARY) HYPERTENSION SNOMED Code(s): 46842274 (6) Marijuana use Current Visit: Yes Status: Chronic Code(s): F12.90 - CANNABIS USE, UNSPECIFIED, UNCOMPLICATED SNOMED Code(s): 084611323 (7) Tobacco dependence in remission Current Visit: Yes Status: Resolved Code(s): F17.201 - NICOTINE DEPENDENCE, UNSPECIFIED, IN REMISSION SNOMED Code(s): 906210517 Plan: 1. Continue aspirin, statin, Plavix, heparin subcu, beta brayden. Will increase beta brayden therapy as tolerated. 2. Will give Lasix 20 mg IV push 1 today. 3. Wean O2 as tolerated. Encourage incentive spirometry use 10 times every hour. 4. Encourage continued smoking cessation. 5. Discontinue [place]-Marie catheter. Connect cordis to continue CVP monitoring. 6. Will monitor daily labs and x-rays. 7. GI/DVT prophylaxis. 8. Insulin management per primary care service. 9. Pain management with ordered medication regimen. 10. Bronchodilators per pulmonology service. 11. Increase activity, ambulate in hallway. PT/OT/cardiac rehab following. 12. More recommendations to follow. Time with Patient: Greater than 30
[2018-05-27 11:00] LABS: Glucose,Whole Blood 179 mg/dL (75-99)
[2018-05-27] MEDS ORDERED: METOPROLOL TARTRATE 12.5 MG TAB PO STA (11:22)
[2018-05-27 12:05] LABS: Glucose,Whole Blood 179 mg/dL (75-99)
[2018-05-27] MEDS ORDERED: HYDROcodone/APAP 5-325MG 1 EACH TAB PO PRN (12:19)
[2018-05-27] MEDS ORDERED: MAGNESIUM HYDROXIDE 2,400 MG/10 ML CUP PO PRN (12:20)
[2018-05-27] MEDS ORDERED: BISACODYL 10 MG SUPP RECTAL PRN (12:20)
[2018-05-27 13:54] LABS: Glucose,Whole Blood 156 mg/dL (75-99)
[2018-05-27 15:04] LABS: Glucose,Whole Blood 139 mg/dL (75-99)
[2018-05-27 16:06] LABS: Glucose,Whole Blood 121 mg/dL (75-99)
[2018-05-27 16:57] LABS: Glucose,Whole Blood 134 mg/dL (75-99)
[2018-05-27 18:04] LABS: Glucose,Whole Blood 157 mg/dL (75-99)
[2018-05-27 18:52] LABS: Glucose,Whole Blood 226 mg/dL (75-99)
[2018-05-27 20:12] LABS: Glucose,Whole Blood 178 mg/dL (75-99)
[2018-05-27] MEDS: SENNOSIDES-DOCUSATE SODIUM 1 EACH TAB PO SCH (20:13)
[2018-05-27] MEDS ORDERED: METOPROLOL TARTRATE 25 MG TAB PO SCH (21:00)
[2018-05-27 21:10] LABS: Glucose,Whole Blood 164 mg/dL (75-99)
[2018-05-27 23:10] LABS: Glucose,Whole Blood 123 mg/dL (75-99)
[2018-05-28 00:01] LABS: Glucose,Whole Blood 93 mg/dL (75-99)
[2018-05-28] MEDS: INSULIN REGULAR 100 UNIT in SODIUM CHLORIDE 0.9% 100 ML IV SCH (01:56)
[2018-05-28 01:57] LABS: Glucose,Whole Blood 139 mg/dL (75-99)
[2018-05-28 02:59] LABS: Glucose,Whole Blood 135 mg/dL (75-99)
[2018-05-28] MEDS: HYDROcodone/APAP 5-325MG 1 EACH TAB PO PRN ×3 (04:02→18:39)
[2018-05-28 04:14] LABS: Glucose,Whole Blood 138 mg/dL (75-99)
[2018-05-28 04:35] LABS: Basophils % (A) 0 %; Eosinophils % (A) 0 %; HCT 32.1 % (39.0-53.0); HGB 11.1 gm/dL (13.0-17.5); Lymphocytes # (A) 1.2 k/uL (1.0-4.8); Lymphocytes % (A) 10 %; MCH 33.4 pg (25.0-35.0); MCHC 34.7 g/dL (31.0-37.0); MCV 96.3 fL (80.0-100.0); Mean Platelet Volume 8.1; Monocytes # (A) 0.8 k/uL (0-1.0); Monocytes % (A) 7 %; Neutrophils # (A) 9.6 k/uL (1.3-7.7); Neutrophils % (A) 81 %; RBC 3.33 m/uL (4.30-5.90); RDW 12.6 % (11.5-15.5); WBC 11.8 k/uL (3.8-10.6)
[2018-05-28 04:36] LABS: Ionized Calcium 4.9 mg/dL (4.5-5.3)
[2018-05-28 04:46] LABS: ALT 34 U/L (21-72); AST 40 U/L (17-59); Albumin 3.1 g/dL (3.5-5.0); Alkaline Phosphatase 63 U/L (38-126); Anion Gap 7 mmol/L; Blood Urea Nitrogen 16 mg/dL (9-20); Calcium 8.4 mg/dL (8.4-10.2); Carbon Dioxide 26 mmol/L (22-30); Chloride 103 mmol/L (98-107); Glucose 127 mg/dL (74-99); Potassium 4.3 mmol/L (3.5-5.1); Sodium 136 mmol/L (137-145); Total Bilirubin 0.9 mg/dL (0.2-1.3); Total Protein 5.5 g/dL (6.3-8.2)
[2018-05-28 04:50] LABS: Platelet Count 85 k/uL (150-450)
[2018-05-28] MEDS: KETOROLAC 30 MG/ML 1 ML VIAL IVP SCH ×4 (05:15→23:03)
[2018-05-28] MEDS: LACTATED RINGERS 1,000 ML IV SCH (05:15)
[2018-05-28 06:00] LABS: Glucose,Whole Blood 141 mg/dL (75-99)
--- NOTE | 2018-05-28 06:51 | XR ---
EXAMINATION TYPE: XR chest 1V portable DATE OF EXAM: 05/28/2018 HISTORY: Post Operative Cardiac Surgery. REFERENCE: Previous study dated 05/27/2018. FINDINGS: There has been a midline sternotomy. The patient [place]-Marie catheter is been removed. A righ t internal jugular sheath remains in place. A left pleural drain is present. The heart is mildly enlarged. There is left basilar multiple small left effusion. IMPRESSION: SLIGHT WORSENING LEFT BASILAR ATELECTASIS.
[2018-05-28] MEDS: IPRATROPIUM-ALBUTEROL 3 ML NEB INHALATION SCH ×4 (07:13→19:18)
[2018-05-28] MEDS ORDERED: FUROSEMIDE 10 MG/ML 2 ML VIAL IV ONE (07:31)
[2018-05-28 07:35] LABS: Glucose,Whole Blood 134 mg/dL (75-99)
[2018-05-28] MEDS ORDERED: ALPRAZolam 0.25 MG TAB PO PRN (07:55)
[2018-05-28] MEDS: CLOPIDOGREL 75 MG TAB PO SCH (08:18)
[2018-05-28] MEDS: ATORVASTATIN 40 MG TAB PO SCH (08:18)
[2018-05-28] MEDS: PANTOPRAZOLE 40 MG TABLET PO SCH (08:18)
[2018-05-28] MEDS: ASPIRIN 325 MG TAB PO SCH (08:18)
[2018-05-28] MEDS: HEPARIN SODIUM,PORCINE 5,000 UNIT/ML 1 ML VIAL SQ SCH ×3 (08:19→23:04)
[2018-05-28] MEDS: METOPROLOL TARTRATE 50 MG TAB PO SCH ×2 (08:20→20:28)
[2018-05-28] MEDS: MUPIROCIN 2% OINT 22 GM TUBE NASAL SCH ×2 (08:21→20:28)
--- NOTE | 2018-05-28 08:23 | P.PN ---
Subjective Progress Note Date: 05/28/18 Principal diagnosis: Coronary artery disease. Previous medical history of hypertension, severe COPD with a preoperative FEV1 of 45% of predicted, previous tobacco dependence, marijuana use, hyperlipidemia, and family history of coronary artery disease, obesity. POD #2 coronary artery bypass grafting 2 vessels, left internal mammary artery to left anterior descending artery, reverse saphenous vein graft to diagonal artery. Patch angioplasty of left anterior descending artery. Endoscopic vein harvest of the left greater saphenous vein. Intraoperative transesophageal echocardiogram and epi-aortic ultrasound. Patient's currently sitting up in the chair in no acute distress. States pain is controlled on ordered pain medication. Patient indicated to nursing staff during the evening and this morning that he would like to go home and does not want to be here any longer. Reinforced with the patient that is not an option at this time. Objective - Vital Signs Vital signs: Vital Signs Temp 98.5 F 05/28/18 04:00 Pulse 104 H 05/28/18 07:27 Resp 24 05/28/18 07:00 BP 128/76 05/28/18 07:00 Pulse Ox 94 L 05/28/18 07:00 Intake & Output 05/27/18 05/28/18 05/28/18 18:59 06:59 18:59 Intake Total 439.849 653.111 36 Output Total 1180 662 75 Balance -740.151 -8.889 -39 Weight 115.8 kg Intake: IV 151 386 36 CO/CI 20 Lactated Ringers 1,000 ml 50 320 30 @ 20 mls/hr IV .Q24H OLE Rx#:[id number] Pressure Bag 81 66 6 Intake, IV Titration 48.849 17.111 Amount Insulin Regular 100 unit 48.849 17.111 In Sodium Chloride 0.9% 100 ml @ Per Protocol IV .Q0M OLE Rx#:[id number] Oral 240 250 Output: Chest Tube Drainage 140 142 50 Left Pleural 40 110 30 Mediastinal x2 100 32 20 Urine 1040 520 25 Other: Voiding Method Indwelling Catheter Indwelling Catheter ABP, PAP, CO, CI - Last Documented Arterial Blood Pressure 131/65 Pulmonary Artery Pressure 129/129 Cardiac Output 7.2 Cardiac Index 3.5 - Constitutional General appearance: Present: cooperative, no acute distress, obese - Respiratory Details: Lungs sounds diminished bilaterally with fine crackles in the bases. Respirations even, nonlabored. Currently on 2 L nasal cannula with oxygen saturations 93%. Able to achieve 1000 mL on his incentive spirometry. Effective cough. Mediastinal chest tube to continuous wall suction, 30 mL serosanguineous drainage overnight, 200 mL in the last 24 hours. Left pleural chest tube to continuous wall suction, 90 mL serosanguineous drainage overnight , 150 mL in the last 24 hours. No air leaks present. - Cardiovascular Details: S1, S2 present, positive rub. Regular rate and rhythm, sinus rhythm on telemetry. Sternum stable. A/V epicardial pacemaker wires present, grounded. Palpable peripheral pulses bilaterally. No edema present. No calf pain or tenderness noted. Right internal jugular Cordis, right radial arterial line present. Heart hugger in place with patient demonstrating appropriate use. Antiembolism stockings, SCDs present. - Gastrointestinal Gastrointestinal Comment(s): Abdomen soft, nontender, nondistended, obese. Hypoactive bowel sounds present 4 quadrants. Tolerating diet. Positive flatus. - Genitourinary Genitourinary Comment(s): Hodge present draining clear, yellow urine. Output 25-75 mL/h overnight. - Integumentary Integumentary Comment(s): Skin is warm and dry with evidence of good perfusion. Anterior chest incision well approximated and covered with cover dry intact dressing. Left lower extremity EVH site well approximated. - Neurologic Neurologic: Present: CNII-XII intact - Musculoskeletal Musculoskeletal: Present: gait normal, strength equal bilaterally - Psychiatric Psychiatric: Present: A&O x's 3, appropriate affect - Allied health notes Allied health notes reviewed: nursing - Labs CBC & Chem 7: 05/28/18 04:20 05/28/18 04:20 Labs: Abnormal Lab Results - Last 24 Hours (Table) 05/27/18 05/27/18 05/27/18 Range/Units 09:03 10:03 10:58 WBC (3.8-10.6) k/uL RBC (4.30-5.90) m/uL Hgb (13.0-17.5) gm/dL Hct (39.0-53.0) % Plt Count (150-450) k/uL Neutrophils # (1.3-7.7) k/uL Sodium (137-145) mmol/L Creatinine (0.66-1.25) mg/dL Glucose (74-99) mg/dL POC Glucose (mg/dL) 186 H 190 H 179 H (75-99) mg/dL Total Protein (6.3-8.2) g/dL Albumin (3.5-5.0) g/dL 05/27/18 05/27/18 05/27/18 Range/Units 12:04 13:52 15:02 WBC (3.8-10.6) k/uL RBC (4.30-5.90) m/uL Hgb (13.0-17.5) gm/dL Hct (39.0-53.0) % Plt Count (150-450) k/uL Neutrophils # (1.3-7.7) k/uL Sodium (137-145) mmol/L Creatinine (0.66-1.25) mg/dL Glucose (74-99) mg/dL POC Glucose (mg/dL) 179 H 156 H 139 H (75-99) mg/dL Total Protein (6.3-8.2) g/dL Albumin (3.5-5.0) g/dL 05/27/18 05/27/18 05/27/18 Range/Units 16:04 16:55 18:02 WBC (3.8-10.6) k/uL RBC (4.30-5.90) m/uL Hgb (13.0-17.5) gm/dL Hct (39.0-53.0) % Plt Count (150-450) k/uL Neutrophils # (1.3-7.7) k/uL Sodium (137-145) mmol/L Creatinine (0.66-1.25) mg/dL Glucose (74-99) mg/dL POC Glucose (mg/dL) 121 H 134 H 157 H (75-99) mg/dL Total Protein (6.3-8.2) g/dL Albumin (3.5-5.0) g/dL 05/27/18 05/27/18 05/27/18 Range/Units 18:50 20:11 21:09 WBC (3.8-10.6) k/uL RBC (4.30-5.90) m/uL Hgb (13.0-17.5) gm/dL Hct (39.0-53.0) % Plt Count (150-450) k/uL Neutrophils # (1.3-7.7) k/uL Sodium (137-145) mmol/L Creatinine (0.66-1.25) mg/dL Glucose (74-99) mg/dL POC Glucose (mg/dL) 226 H 178 H 164 H (75-99) mg/dL Total Protein (6.3-8.2) g/dL Albumin (3.5-5.0) g/dL 05/27/18 05/28/18 05/28/18 Range/Units 23:09 01:55 02:57 WBC (3.8-10.6) k/uL RBC (4.30-5.90) m/uL Hgb (13.0-17.5) gm/dL Hct (39.0-53.0) % Plt Count (150-450) k/uL Neutrophils # (1.3-7.7) k/uL Sodium (137-145) mmol/L Creatinine (0.66-1.25) mg/dL Glucose (74-99) mg/dL POC Glucose (mg/dL) 123 H 139 H 135 H (75-99) mg/dL Total Protein (6.3-8.2) g/dL Albumin (3.5-5.0) g/dL 05/28/18 05/28/18 05/28/18 Range/Units 04:11 04:20 04:20 WBC 11.8 H (3.8-10.6) k/uL RBC 3.33 L (4.30-5.90) m/uL Hgb 11.1 L (13.0-17.5) gm/dL Hct 32.1 L (39.0-53.0) % Plt Count 85 L (150-450) k/uL Neutrophils # 9.6 H (1.3-7.7) k/uL Sodium 136 L (137-145) mmol/L Creatinine 0.60 L (0.66-1.25) mg/dL Glucose 127 H (74-99) mg/dL POC Glucose (mg/dL) 138 H (75-99) mg/dL Total Protein 5.5 L (6.3-8.2) g/dL Albumin 3.1 L (3.5-5.0) g/dL 05/28/18 05/28/18 Range/Units 05:59 07:32 WBC (3.8-10.6) k/uL RBC (4.30-5.90) m/uL Hgb (13.0-17.5) gm/dL Hct (39.0-53.0) % Plt Count (150-450) k/uL Neutrophils # (1.3-7.7) k/uL Sodium (137-145) mmol/L Creatinine (0.66-1.25) mg/dL Glucose (74-99) mg/dL POC Glucose (mg/dL) 141 H 134 H (75-99) mg/dL Total Protein (6.3-8.2) g/dL Albumin (3.5-5.0) g/dL - Imaging and Cardiology Chest x-ray: report reviewed, image reviewed Assessment and Plan (1) Coronary artery disease Current Visit: Yes Status: Chronic Code(s): I25.10 - ATHSCL HEART DISEASE OF [place] CORONARY ARTERY W/O ANG PCTRS SNOMED Code(s): 52223938 (2) COPD (chronic obstructive pulmonary disease) Current Visit: Yes Status: Chronic Code(s): J44.9 - CHRONIC OBSTRUCTIVE PULMONARY DISEASE, UNSPECIFIED SNOMED Code(s): 55815733 (3) Family history of coronary artery disease in father Current Visit: Yes Status: Chronic Code(s): Z82.49 - FAMILY HX OF [place] HEART DIS AND OTH DIS OF THE CIRC SYS SNOMED Code(s): 408250377 (4) Hyperlipidemia Current Visit: Yes Status: Chronic Code(s): E78.5 - HYPERLIPIDEMIA, UNSPECIFIED SNOMED Code(s): 36497991 (5) Hypertension Current Visit: Yes Status: Chronic Code(s): I10 - ESSENTIAL (PRIMARY) HYPERTENSION SNOMED Code(s): 47416652 (6) Marijuana use Current Visit: Yes Status: Chronic Code(s): F12.90 - CANNABIS USE, UNSPECIFIED, UNCOMPLICATED SNOMED Code(s): 081923650 (7) Tobacco dependence in remission Current Visit: Yes Status: Resolved Code(s): F17.201 - NICOTINE DEPENDENCE, UNSPECIFIED, IN REMISSION SNOMED Code(s): 337179331 Plan: 1. Continue aspirin, statin, Plavix, heparin subcu, beta brayden. Lopressor increased to 50 mg twice a day. Will increase beta brayden therapy as tolerated. 2. Will give Lasix 20 mg IV push 1 today. 3. Wean O2 as tolerated. Encourage incentive spirometry use 10 times every hour. 4. Encourage continued smoking cessation. 5. Will discontinue chest tubes, arterial line, Cordis, Hodge today. 6. Will monitor daily labs and x-rays. 7. GI/DVT prophylaxis. 8. Insulin management per primary care service. 9. Pain management with ordered medication regimen. 10. Bronchodilators per pulmonology service. 11. Increase activity, ambulate in hallway. PT/OT/cardiac rehab following. 12. May transfer to [facility] later today if bed available. Time with Patient: Greater than 30
--- NOTE | 2018-05-28 08:57 | P.PN ---
Subjective Progress Note Date: 05/28/18 Principal diagnosis: Postop day #1, status post four-vessel bypass grafting Progress note dated 05/27/2018 This is a 62-year-old male who is postop day #1, status post four-vessel bypass grafting. Currently, he is doing reasonably well but remains on a number different things including 6 L nasal cannula, lactated Ringer's at 50 mL an hour , insulin drip 4 units an hour and nitroglycerin drip at 5 mics per minute. He is doing about 1700 mL on his incentive spirometer. The patient has a history of CAD COPD, goal stage III, chronic nicotine dependence, chronic marijuana use , hypertension, hyperlipidemia, ischemic cardiomyopathy, and valvular heart disease in the form of mild mitral regurgitation and trace aortic insufficiency. The patient down denies any complaints today. Denies any chest pain chest discomfort palpitations fluttering in the chest. Denies any shortness of breath. He does have anterior chest pain on deep breathing consistent with his recent median sternotomy. The patient appears not to be any distress at this time. Progress note dated 05/28/2018 62-year-old male postop day #2, status post four-vessel bypass grafting. The patient's currently receiving O2 at 2 L. His IV is lactated Ringer's at 30 mL an hour. The patient still has a lot of hardware in place. He is doing pretty well on his incentive spirometer getting nearly 2000 mL. He is not coughing or producing any phlegm. No chest pain or chest discomfort. He does have surgical site pain. The patient has a history of CAD, COPD, chronic nicotine dependence, chronic marijuana use, hypertension, hyperlipidemia, ischemic cardiomyopathy and valvular heart disease in the form of mitral regurgitation and trace aortic insufficiency the patient sitting at the bedside and not verbalizing any complaints at this time. Objective - Vital Signs Vital signs: Vital Signs Temp 98.5 F 05/28/18 04:00 Pulse 104 H 05/28/18 07:27 Resp 24 05/28/18 07:00 BP 128/76 05/28/18 07:00 Pulse Ox 94 L 05/28/18 07:00 Intake & Output 05/27/18 05/28/18 05/28/18 18:59 06:59 18:59 Intake Total 439.849 653.111 36 Output Total 1180 662 75 Balance -740.151 -8.889 -39 Weight 115.8 kg Intake: IV 151 386 36 CO/CI 20 Lactated Ringers 1,000 ml 50 320 30 @ 20 mls/hr IV .Q24H OLE Rx#:[id number] Pressure Bag 81 66 6 Intake, IV Titration 48.849 17.111 Amount Insulin Regular 100 unit 48.849 17.111 In Sodium Chloride 0.9% 100 ml @ Per Protocol IV .Q0M OLE Rx#:[id number] Oral 240 250 Output: Chest Tube Drainage 140 142 50 Left Pleural 40 110 30 Mediastinal x2 100 32 20 Urine 1040 520 25 Other: Voiding Method Indwelling Catheter Indwelling Catheter ABP, PAP, CO, CI - Last Documented Arterial Blood Pressure 131/65 Pulmonary Artery Pressure 129/129 Cardiac Output 7.2 Cardiac Index 3.5 - Exam No acute distress, oriented 3. Nasal O2 in place. HEENT examination is grossly unremarkable. Mucous membranes are moist. No oral lesions. Neck supple. Full range of motion. No adenopathy thyromegaly or neck vein distention. Cardiovascular examination reveals regular rhythm rate. S1-S2 normal. No S3 or S4. No discernible murmur noted. Heart sounds are distant. Lungs reveal mostly clear breath sounds. Her sounds are equal bilaterally. Today, there are scattered rhonchi and some mild high-pitched wheezes. No crackles. He does have excellent air exchange bilaterally. Abdomen soft bowel sounds are heard. No masses or tenderness. Extremities are intact. No cyanosis clubbing or edema. Skin is without rash or lesion. Neurologic examination is brief but nonfocal. - Labs CBC & Chem 7: 05/28/18 04:20 05/28/18 04:20 Labs: Abnormal Lab Results - Last 24 Hours (Table) 05/27/18 05/27/18 05/27/18 Range/Units 09:03 10:03 10:58 WBC (3.8-10.6) k/uL RBC (4.30-5.90) m/uL Hgb (13.0-17.5) gm/dL Hct (39.0-53.0) % Plt Count (150-450) k/uL Neutrophils # (1.3-7.7) k/uL Sodium (137-145) mmol/L Creatinine (0.66-1.25) mg/dL Glucose (74-99) mg/dL POC Glucose (mg/dL) 186 H 190 H 179 H (75-99) mg/dL Total Protein (6.3-8.2) g/dL Albumin (3.5-5.0) g/dL 05/27/18 05/27/18 05/27/18 Range/Units 12:04 13:52 15:02 WBC (3.8-10.6) k/uL RBC (4.30-5.90) m/uL Hgb (13.0-17.5) gm/dL Hct (39.0-53.0) % Plt Count (150-450) k/uL Neutrophils # (1.3-7.7) k/uL Sodium (137-145) mmol/L Creatinine (0.66-1.25) mg/dL Glucose (74-99) mg/dL POC Glucose (mg/dL) 179 H 156 H 139 H (75-99) mg/dL Total Protein (6.3-8.2) g/dL Albumin (3.5-5.0) g/dL 05/27/18 05/27/18 05/27/18 Range/Units 16:04 16:55 18:02 WBC (3.8-10.6) k/uL RBC (4.30-5.90) m/uL Hgb (13.0-17.5) gm/dL Hct (39.0-53.0) % Plt Count (150-450) k/uL Neutrophils # (1.3-7.7) k/uL Sodium (137-145) mmol/L Creatinine (0.66-1.25) mg/dL Glucose (74-99) mg/dL POC Glucose (mg/dL) 121 H 134 H 157 H (75-99) mg/dL Total Protein (6.3-8.2) g/dL Albumin (3.5-5.0) g/dL 05/27/18 05/27/18 05/27/18 Range/Units 18:50 20:11 21:09 WBC (3.8-10.6) k/uL RBC (4.30-5.90) m/uL Hgb (13.0-17.5) gm/dL Hct (39.0-53.0) % Plt Count (150-450) k/uL Neutrophils # (1.3-7.7) k/uL Sodium (137-145) mmol/L Creatinine (0.66-1.25) mg/dL Glucose (74-99) mg/dL POC Glucose (mg/dL) 226 H 178 H 164 H (75-99) mg/dL Total Protein (6.3-8.2) g/dL Albumin (3.5-5.0) g/dL 05/27/18 05/28/18 05/28/18 Range/Units 23:09 01:55 02:57 WBC (3.8-10.6) k/uL RBC (4.30-5.90) m/uL Hgb (13.0-17.5) gm/dL Hct (39.0-53.0) % Plt Count (150-450) k/uL Neutrophils # (1.3-7.7) k/uL Sodium (137-145) mmol/L Creatinine (0.66-1.25) mg/dL Glucose (74-99) mg/dL POC Glucose (mg/dL) 123 H 139 H 135 H (75-99) mg/dL Total Protein (6.3-8.2) g/dL Albumin (3.5-5.0) g/dL 05/28/18 05/28/18 05/28/18 Range/Units 04:11 04:20 04:20 WBC 11.8 H (3.8-10.6) k/uL RBC 3.33 L (4.30-5.90) m/uL Hgb 11.1 L (13.0-17.5) gm/dL Hct 32.1 L (39.0-53.0) % Plt Count 85 L (150-450) k/uL Neutrophils # 9.6 H (1.3-7.7) k/uL Sodium 136 L (137-145) mmol/L Creatinine 0.60 L (0.66-1.25) mg/dL Glucose 127 H (74-99) mg/dL POC Glucose (mg/dL) 138 H (75-99) mg/dL Total Protein 5.5 L (6.3-8.2) g/dL Albumin 3.1 L (3.5-5.0) g/dL 05/28/18 05/28/18 Range/Units 05:59 07:32 WBC (3.8-10.6) k/uL RBC (4.30-5.90) m/uL Hgb (13.0-17.5) gm/dL Hct (39.0-53.0) % Plt Count (150-450) k/uL Neutrophils # (1.3-7.7) k/uL Sodium (137-145) mmol/L Creatinine (0.66-1.25) mg/dL Glucose (74-99) mg/dL POC Glucose (mg/dL) 141 H 134 H (75-99) mg/dL Total Protein (6.3-8.2) g/dL Albumin (3.5-5.0) g/dL Assessment and Plan Assessment: Assessment Postop day #2, status post two-vessel bypass grafting including a REDD to LAD and saphenous vein graft to diagonal branch Routine postoperative ventilator management GOLD stage III COPD. FEV1 1.6 L or 45% of predicted History of chronic nicotine dependence History of chronic marijuana use History of essential hypertension History of hyperlipidemia. Ischemic cardiomyopathy, ejection fraction 45-50% Valvular heart disease in the form of mild mitral regurgitation and trace aortic insufficiency Plan: Plan dated 05/27/2018 We encouraged the patient to continue take deep breaths coughing clear secretions. We also recommend him using the incentive spirometer every hour. The patient remains on O2 6 L. Chest x-rays reviewed. He is getting lactated Ringer's at 50 mL now insulin drip 4 units an hour and nitroglycerin at 5 mcg/ m. Chest x-ray does show improved aeration of both lungs. White count 13.7 hemoglobin 11.1 hematocrit 23.2 and platelet count 108,000. PT and PTT are normal. Sodium 136. Potassium chloride CO2 anion gap all normal. BUN and creatinine is 14 and 0.5 respectively. Medications are reviewed. The patient is to remain on breathing treatments at this time. Critical care time 33 minutes Plan dated 05/28/2018 The patient is on 2 L nasal cannula. He receiving lactated Ringer's at 30 mL an hour. He is doing well on his incentive spirometer. He does have surgical site pain. His medications labs and x-rays are all reviewed. Chest x-ray show some basilar atelectasis on the left side. White count 11.8, hemoglobin 11.1, hematocrit 32.1 and platelet count 85,000. Sodium 136 potassium chloride CO2 are normal. Anion gap normal. BUN is 16 and creatinine 0.6. I asked him to continue using his incentive spirometer every hour. We also have deep breathing coughing and clearing secretions. Continue breathing treatments 4 times a day and when necessary. Critical care time 31 minutes Time with Patient: Greater than 30
[2018-05-28 09:00] LABS: Glucose,Whole Blood 170 mg/dL (75-99)
[2018-05-28 10:21] LABS: Glucose,Whole Blood 147 mg/dL (75-99)
--- NOTE | 2018-05-28 10:24 | PN ---
PROGRESS NOTE Mr. Lara is a 62-year-old male status post coronary artery bypass grafting. He is doing quite well this morning. He continues to be in sinus mechanism. He is anxious to go home. He denies any dizziness or palpitations. He is ambulating in the room without difficulty. He denies any dizziness or palpitations. He denies any nausea. No cough. He continues to be on aspirin once a day, Lipitor 40 mg daily, Plavix 75 mg daily, metoprolol tartrate 50 mg twice a day. PHYSICAL EXAMINATION: Blood pressure 130/60 with a heart rate in 90s. LUNGS: Clear with few crackles at the bases. HEART: Regular rate and rhythm S1, S2. No S3. No gallop. ABDOMEN: Soft, nontender. EXTREMITIES: Trace edema. LAB DATA: Lab data revealed BUN and creatinine 16 and 0.6, potassium 4.3 and hemoglobin of 11.1. IMPRESSION: 1. Status post coronary bypass grafting. 2. Hyperlipidemia. 3. History of chronic obstructive lung disease. RECOMMENDATION: Patient activity will be increased. Hopefully transfer to the telemetry floor and I am hopeful that he should be able to be discharged home soon. MMODL / IJN: [id number] /
[2018-05-28 12:12] LABS: Glucose,Whole Blood 134 mg/dL (75-99)
[2018-05-28] MEDS: INSULN ASP PRT/INSULIN ASPART 100 UNIT/ML 10 ML VIAL SQ SCH (12:13)
[2018-05-28] MEDS: INSULIN ASPART 100 UNIT/ML 1 ML 10 ML VIAL SQ SCH ×3 (12:15→20:29)
[2018-05-28 17:30] LABS: Glucose,Whole Blood 153 mg/dL (75-99)
[2018-05-28] MEDS ORDERED: INSULIN ASPART 100 UNIT/ML 1 ML 10 ML VIAL SQ SCH (17:30)
[2018-05-28 20:29] LABS: Glucose,Whole Blood 140 mg/dL (75-99)
[2018-05-28] MEDS: SENNOSIDES-DOCUSATE SODIUM 1 EACH TAB PO SCH (20:35)
[2018-05-28] MEDS ORDERED: INSULIN NPH 300 UNIT/3 ML VIAL SQ SCH (21:00)
[2018-05-29 01:37] LABS: Glucose,Whole Blood 143 mg/dL (75-99)
[2018-05-29 04:12] LABS: Basophils % (A) 0 %; Eosinophils % (A) 0 %; HCT 30.6 % (39.0-53.0); HGB 10.4 gm/dL (13.0-17.5); Lymphocytes # (A) 0.8 k/uL (1.0-4.8); Lymphocytes % (A) 7 %; MCH 33.3 pg (25.0-35.0); MCV 98.1 fL (80.0-100.0); Mean Platelet Volume 8.3; Monocytes # (A) 0.8 k/uL (0-1.0); Monocytes % (A) 8 %; Neutrophils # (A) 8.3 k/uL (1.3-7.7); Neutrophils % (A) 81 %; RBC 3.12 m/uL (4.30-5.90); RDW 12.4 % (11.5-15.5); WBC 10.3 k/uL (3.8-10.6)
[2018-05-29 04:15] LABS: ALT 34 U/L (21-72); AST 32 U/L (17-59); Albumin 3.1 g/dL (3.5-5.0); Alkaline Phosphatase 61 U/L (38-126); Anion Gap 7 mmol/L; Blood Urea Nitrogen 19 mg/dL (9-20); Calcium 8.6 mg/dL (8.4-10.2); Carbon Dioxide 26 mmol/L (22-30); Chloride 102 mmol/L (98-107); Glucose 141 mg/dL (74-99); Potassium 4.4 mmol/L (3.5-5.1); Sodium 135 mmol/L (137-145); Total Bilirubin 1.2 mg/dL (0.2-1.3); Total Protein 5.6 g/dL (6.3-8.2)
[2018-05-29 04:20] LABS: Platelet Count 85 k/uL (150-450)
[2018-05-29] MEDS: KETOROLAC 30 MG/ML 1 ML VIAL IVP SCH ×4 (05:57→23:17)
[2018-05-29 06:27] LABS: Glucose,Whole Blood 158 mg/dL (75-99)
[2018-05-29] MEDS: IPRATROPIUM-ALBUTEROL 3 ML NEB INHALATION SCH ×4 (06:52→19:17)
[2018-05-29] MEDS: INSULIN ASPART 100 UNIT/ML 1 ML 10 ML VIAL SQ SCH ×4 (07:38→20:17)
[2018-05-29] MEDS: INSULN ASP PRT/INSULIN ASPART 100 UNIT/ML 10 ML VIAL SQ SCH (07:38)
--- NOTE | 2018-05-29 08:37 | XR ---
EXAMINATION TYPE: XR chest 2V DATE OF EXAM: 05/29/2018 COMPARISON: 05/28/2018 TECHNIQUE: PA and lateral views submitted. HISTORY: Postop FINDINGS: There is bilateral consolidation small effusion. Tiny left apical pneumothorax measuring approximatel y 5%. Chest. Pleural thickening on the right noted. Postsurgical changes and cardiomegaly stable. Hypertrophic and degenerative change of the spine. Epic ardial lead noted. IMPRESSION: 1. Stable 5% left apical pneumothorax. 2. Pleural-parenchymal changes are stable. 3. Postsurgical changes.
[2018-05-29] MEDS ORDERED: FUROSEMIDE 10 MG/ML 4 ML VIAL IV STA (08:49)
[2018-05-29] MEDS: HEPARIN SODIUM,PORCINE 5,000 UNIT/ML 1 ML VIAL SQ SCH ×3 (08:53→23:19)
[2018-05-29] MEDS: ASPIRIN 325 MG TAB PO SCH (08:54)
[2018-05-29] MEDS: MUPIROCIN 2% OINT 22 GM TUBE NASAL SCH ×2 (08:54→20:18)
[2018-05-29] MEDS: PANTOPRAZOLE 40 MG TABLET PO SCH (08:54)
[2018-05-29] MEDS: CLOPIDOGREL 75 MG TAB PO SCH (08:54)
[2018-05-29] MEDS: METOPROLOL TARTRATE 50 MG TAB PO SCH ×3 (08:54→20:19)
[2018-05-29] MEDS: ATORVASTATIN 40 MG TAB PO SCH (08:54)
--- NOTE | 2018-05-29 08:58 | P.PN ---
Subjective Progress Note Date: 05/29/18 Principal diagnosis: Coronary artery disease. Previous medical history of hypertension, severe COPD with a preoperative FEV1 of 45% of predicted, previous tobacco dependence, marijuana use, hyperlipidemia, and family history of coronary artery disease, obesity. POD #3 coronary artery bypass grafting 2 vessels, left internal mammary artery to left anterior descending artery, reverse saphenous vein graft to diagonal artery. Patch angioplasty of left anterior descending artery. Endoscopic vein harvest of the left greater saphenous vein. Intraoperative transesophageal echocardiogram and epi-aortic ultrasound. Patient's currently sitting up in the chair in no acute distress. States pain is controlled on ordered pain medication. Patient does give a little tachycardic with coughing and ambulation. He is still insisting that he wants to go home today. Chest tubes were discontinued yesterday, pacemaker wires were discontinued this morning. Patient has been up and down and ambulating multiple times with minimal to no assistance. Objective - Vital Signs Vital signs: Vital Signs Temp 98 F 05/28/18 16:00 Pulse 98 05/29/18 07:03 Resp 20 05/29/18 04:00 BP 103/61 05/29/18 04:00 Pulse Ox 94 L 05/29/18 04:00 Intake & Output 05/28/18 05/29/18 05/29/18 18:59 06:59 18:59 Intake Total 413.724 Output Total 815 250 Balance -401.276 -250 Weight 113.1 kg Intake: IV 36 Lactated Ringers 1,000 ml 30 @ 20 mls/hr IV .Q24H OLE Rx#:[id number] Pressure Bag 6 Intake, IV Titration 17.724 Amount Insulin Regular 100 unit 17.724 In Sodium Chloride 0.9% 100 ml @ Per Protocol IV .Q0M OLE Rx#:[id number] Oral 360 Output: Chest Tube Drainage 50 Left Pleural 30 Mediastinal x2 20 Urine 765 250 Other: Voiding Method Indwelling Catheter Urinal # Voids 1 ABP, PAP, CO, CI - Last Documented Arterial Blood Pressure 105/86 Pulmonary Artery Pressure 129/129 Cardiac Output 7.2 Cardiac Index 3.5 - Constitutional General appearance: Present: cooperative, no acute distress, obese - Respiratory Details: Lungs sounds diminished bilaterally with fine crackles in the bases. Respirations even, nonlabored. Currently on room air with oxygen saturations 88 -91%. Able to achieve 1544-5368 mL on his incentive spirometry. Effective cough with productive yellow sputum. - Cardiovascular Details: S1, S2 present, positive rub. Regular rate and rhythm, sinus rhythm to sinus tach on telemetry. Sternum stable. Palpable peripheral pulses bilaterally. No edema present. No calf pain or tenderness noted. Heart hugger in place with patient demonstrating appropriate use. Antiembolism stockings, SCDs present. - Gastrointestinal Gastrointestinal Comment(s): Abdomen soft, nontender, nondistended, obese. Active bowel sounds present 4 quadrants. Tolerating diet. Positive flatus. - Genitourinary Genitourinary Comment(s): Hodge discontinued yesterday. Patient voiding clear, yellow urine without residual. - Integumentary Integumentary Comment(s): Skin is warm and dry with evidence of good perfusion. Anterior chest incision well approximated and covered with dry intact dressing. Left lower extremity EVH site well approximated. Positive serous drainage from previous left pleural chest tube site. - Neurologic Neurologic: Present: CNII-XII intact - Musculoskeletal Musculoskeletal: Present: gait normal, strength equal bilaterally - Psychiatric Psychiatric: Present: A&O x's 3, appropriate affect, intact judgment & insight - Allied health notes Allied health notes reviewed: nursing - Labs CBC & Chem 7: 05/29/18 03:35 05/29/18 03:35 Labs: Abnormal Lab Results - Last 24 Hours (Table) 05/28/18 05/28/18 05/28/18 Range/Units 08:58 10:20 12:11 RBC (4.30-5.90) m/uL Hgb (13.0-17.5) gm/dL Hct (39.0-53.0) % Plt Count (150-450) k/uL Neutrophils # (1.3-7.7) k/uL Lymphocytes # (1.0-4.8) k/uL Sodium (137-145) mmol/L Creatinine (0.66-1.25) mg/dL Glucose (74-99) mg/dL POC Glucose (mg/dL) 170 H 147 H 134 H (75-99) mg/dL Total Protein (6.3-8.2) g/dL Albumin (3.5-5.0) g/dL 07/29/18 07/29/18 07/30/18 Range/Units 17:29 20:27 01:35 RBC (4.30-5.90) m/uL Hgb (13.0-17.5) gm/dL Hct (39.0-53.0) % Plt Count (150-450) k/uL Neutrophils # (1.3-7.7) k/uL Lymphocytes # (1.0-4.8) k/uL Sodium (137-145) mmol/L Creatinine (0.66-1.25) mg/dL Glucose (74-99) mg/dL POC Glucose (mg/dL) 153 H 140 H 143 H (75-99) mg/dL Total Protein (6.3-8.2) g/dL Albumin (3.5-5.0) g/dL 05/29/18 05/29/18 05/29/18 Range/Units 03:35 03:35 06:26 RBC 3.12 L (4.30-5.90) m/uL Hgb 10.4 L (13.0-17.5) gm/dL Hct 30.6 L (39.0-53.0) % Plt Count 85 L (150-450) k/uL Neutrophils # 8.3 H (1.3-7.7) k/uL Lymphocytes # 0.8 L (1.0-4.8) k/uL Sodium 135 L (137-145) mmol/L Creatinine 0.50 L (0.66-1.25) mg/dL Glucose 141 H (74-99) mg/dL POC Glucose (mg/dL) 158 H (75-99) mg/dL Total Protein 5.6 L (6.3-8.2) g/dL Albumin 3.1 L (3.5-5.0) g/dL - Imaging and Cardiology Chest x-ray: report reviewed, image reviewed Assessment and Plan (1) Coronary artery disease Current Visit: Yes Status: Chronic Code(s): I25.10 - ATHSCL HEART DISEASE OF [place] CORONARY ARTERY W/O ANG PCTRS SNOMED Code(s): 49183508 (2) COPD (chronic obstructive pulmonary disease) Current Visit: Yes Status: Chronic Code(s): J44.9 - CHRONIC OBSTRUCTIVE PULMONARY DISEASE, UNSPECIFIED SNOMED Code(s): 54461741 (3) Family history of coronary artery disease in father Current Visit: Yes Status: Chronic Code(s): Z82.49 - FAMILY HX OF ISCHEM HEART DIS AND OTH DIS OF THE CIRC SYS SNOMED Code(s): 578598598 (4) Hyperlipidemia Current Visit: Yes Status: Chronic Code(s): E78.5 - HYPERLIPIDEMIA, UNSPECIFIED SNOMED Code(s): 38369603 (5) Hypertension Current Visit: Yes Status: Chronic Code(s): I10 - ESSENTIAL (PRIMARY) HYPERTENSION SNOMED Code(s): 79981607 (6) Marijuana use Current Visit: Yes Status: Chronic Code(s): F12.90 - CANNABIS USE, UNSPECIFIED, UNCOMPLICATED SNOMED Code(s): 835644421 (7) Tobacco dependence in remission Current Visit: Yes Status: Resolved Code(s): F17.201 - NICOTINE DEPENDENCE, UNSPECIFIED, IN REMISSION SNOMED Code(s): 585702817 Plan: 1. Continue aspirin, statin, Plavix, heparin subcu, beta brayden. Will increase beta brayden therapy as tolerated. 2. Will give Lasix 40 mg IV push 1 today. 3. Encourage incentive spirometry use 10 times every hour. 4. Encourage continued smoking cessation. 5. Epicardial pacemaker wires discontinued. Patient to remain on bedrest for 1 hour post-wire removal. 6. Will monitor daily labs and x-rays. 7. GI/DVT prophylaxis. 8. Insulin management per primary care service. 9. Pain management with ordered medication regimen. 10. Bronchodilators per pulmonology service. 11. Increase activity, ambulate in hallway. PT/OT/cardiac rehab following. 12. May transfer to [facility] later today if bed available. 13. Will discharge to home with home care tomorrow. Time with Patient: Greater than 30
--- NOTE | 2018-05-29 09:03 | P.PN ---
Subjective Progress Note Date: 05/29/18 Principal diagnosis: Multivessel coronary artery disease, status post triple vessel coronary artery bypass grafting, postop day 3 Mr. Lara is a 62-year-old white male patient with symptomatic coronary artery disease, status post coronary artery bypass grafting, with REDD to LAD, SVG to the diag, with endoscopic vessel harvesting, and intraoperative HARJEET, who we are seeing in consultation in the intensive care unit. He is sedated, on mechanical ventilator, his OR exit time was 1352. Patient is currently on SIMV mode of ventilation, with a rate of 12, tidal volume of 560, FiO2 of 100%, and PEEP of 5. His postop blood gases showed pO2 of 374, pCO2 59, pH of 7.29 on FiO2 100%. His respiratory rate was increased to 18, FiO2 was dropped down to 40%. Maintenance IV fluid is lactated Ringer's at a rate of 50 ML per hour, nitroglycerin drip is infusing at 5 mcg/min, clevidipine at 16 mg/hr, insulin at 5.5 u/hr, and propofol at 20 mcg/kg/min. patient was given 750 mL of Cell Saver Intra-Op, he is receiving 250 ML of 5% albumin. He is currently hypertensive, with blood pressure of 180/70, PA pressure 51 of 33, cardiac output and index are 6.0, and 2.6 respectively. There are 2 mediastinal chest tubes and one left pleural, and there is minimal sanguinous output. Atrioventricular epicardial wires are present, external pacemaker on backup. Postoperative chest x-ray showed bilbasilar consolidation and tiny pleural effusions, postoperative atelectasis. Patient's preop PFT was reviewed and it showed FEV1 of 1.6 L or 45% of predicted, consistent with severe obstruction. Patient's past medical history is significant for hypertension, COPD, previous tobacco dependence, marijuana use, hyperlipidemia, and family history of coronary artery disease. His preop echocardiogram showed an ejection fraction of 55%, mild mitral regurgitation, trace aortic insufficiency, and mild tricuspid regurg. His heart catheterization on 04/21/2018 showed complete total occlusion of the proximal LAD with collaterals to the LAD from the right coronary system, the circumflex and right coronary artery were free of any significant occlusive disease. LV gram showed an ejection fraction of 45-50%. On 05/29/2018 patient seen again in follow-up in intensive care unit. In no acute distress, denies any dyspnea, denies any chest pain. Surgical incisional pain is well controlled. He is on room air, and his pulse ox is 90-91%. Lung sounds are clear to auscultation, he is able to achieve 1250 ML on his incentive spirometry today. He is in sinus mechanism on a monitor, a bit tachycardic, with a heart rate in the low 100s. Cardiothoracic surgery is adjusting the dose of beta blockers. 0.9 normal saline at a rate of 10 ML per hour. Today's labs were reviewed, WBCs 10.3, hemoglobin is 10 point, he is 135 , the rest of the electrolytes and renal profile are all within normal limits. His chest x-ray has been reviewed by Dr. Hogue, shows a stable 5% left apical pneumothorax, and and pleural thickening on the right. Patient's chest tubes have been discontinued, he has been ambulating, tolerating activity well. He is anticipated to be discharged home today. Objective - Vital Signs Vital signs: Vital Signs Temp 98 F 05/28/18 16:00 Pulse 98 05/29/18 07:03 Resp 20 05/29/18 04:00 BP 103/61 05/29/18 04:00 Pulse Ox 94 L 05/29/18 04:00 Intake & Output 05/28/18 05/29/18 05/29/18 18:59 06:59 18:59 Intake Total 413.724 Output Total 815 250 Balance -401.276 -250 Weight 113.1 kg Intake: IV 36 Lactated Ringers 1,000 ml 30 @ 20 mls/hr IV .Q24H OLE Rx#:[id number] Pressure Bag 6 Intake, IV Titration 17.724 Amount Insulin Regular 100 unit 17.724 In Sodium Chloride 0.9% 100 ml @ Per Protocol IV .Q0M OLE Rx#:[id number] Oral 360 Output: Chest Tube Drainage 50 Left Pleural 30 Mediastinal x2 20 Urine 765 250 Other: Voiding Method Indwelling Catheter Urinal # Voids 1 ABP, PAP, CO, CI - Last Documented Arterial Blood Pressure 105/86 Pulmonary Artery Pressure 129/129 Cardiac Output 7.2 Cardiac Index 3.5 - Exam - Constitutional General appearance: no acute distress, obese - EENT Eyes: EOMI ENT: NA/AT - Neck Neck: no lymphadenopathy, normal ROM Thyroid: bilateral: normal size - Respiratory Respiratory: bilateral: CTA - Cardiovascular Rhythm: regular Heart sounds: normal: S1, S2 Peripheral Edema: absent: None foot Peripheral Edema: absent: None dorsalis pedis Peripheral Pulses: bilateral: Normal radial pulse Peripheral Pulses: bilateral: Normal - Gastrointestinal General gastrointestinal: no organomegaly, soft, no tenderness - Integumentary Midsternal incision, clean dry and intact, covered with surgical dressing, 2 mediastinal and left pleural chest tubes have been discontinued. Integumentary: normal turgor - Neurologic No focal neurological deficits noted. - Labs CBC & Chem 7: 05/29/18 03:35 05/29/18 03:35 Labs: Abnormal Lab Results - Last 24 Hours (Table) 05/28/18 05/28/18 05/28/18 Range/Units 08:58 10:20 12:11 RBC (4.30-5.90) m/uL Hgb (13.0-17.5) gm/dL Hct (39.0-53.0) % Plt Count (150-450) k/uL Neutrophils # (1.3-7.7) k/uL Lymphocytes # (1.0-4.8) k/uL Sodium (137-145) mmol/L Creatinine (0.66-1.25) mg/dL Glucose (74-99) mg/dL POC Glucose (mg/dL) 170 H 147 H 134 H (75-99) mg/dL Total Protein (6.3-8.2) g/dL Albumin (3.5-5.0) g/dL 05/28/18 05/28/18 05/29/18 Range/Units 17:29 20:27 01:35 RBC (4.30-5.90) m/uL Hgb (13.0-17.5) gm/dL Hct (39.0-53.0) % Plt Count (150-450) k/uL Neutrophils # (1.3-7.7) k/uL Lymphocytes # (1.0-4.8) k/uL Sodium (137-145) mmol/L Creatinine (0.66-1.25) mg/dL Glucose (74-99) mg/dL POC Glucose (mg/dL) 153 H 140 H 143 H (75-99) mg/dL Total Protein (6.3-8.2) g/dL Albumin (3.5-5.0) g/dL 05/29/18 05/29/18 05/29/18 Range/Units 03:35 03:35 06:26 RBC 3.12 L (4.30-5.90) m/uL Hgb 10.4 L (13.0-17.5) gm/dL Hct 30.6 L (39.0-53.0) % Plt Count 85 L (150-450) k/uL Neutrophils # 8.3 H (1.3-7.7) k/uL Lymphocytes # 0.8 L (1.0-4.8) k/uL Sodium 135 L (137-145) mmol/L Creatinine 0.50 L (0.66-1.25) mg/dL Glucose 141 H (74-99) mg/dL POC Glucose (mg/dL) 158 H (75-99) mg/dL Total Protein 5.6 L (6.3-8.2) g/dL Albumin 3.1 L (3.5-5.0) g/dL Assessment and Plan Plan: Assessment: #1. Symptomatic multivessel coronary artery disease, status post two-vessel coronary artery bypass grafting, REDD to LAD, SVG to the diagonal branch, post- op day 3 #2. Routine postop CABG ventilator management #3. History of COPD, preop bedside spirometry showed severe obstruction, with FEV1 1.6 L or 45% of predicted, consistent with GOLD stage III COPD #4. Past history of nicotine dependence and current daily marijuana use #5. Hypertension, hyperlipidemia #6. Ischemic cardiomyopathy, with EF of 45-50% #7. Mild mitral regurgitation, trace aortic insufficiency by echocardiogram on 04/05/2018 Plan: Patient remains stable, no acute events overnight, denies any dyspnea, his surgical pain is under good control, is on room air, stable. Tolerating ambulation. He is anticipated to be discharged home today. He'll need to be seen in the office by Dr. Thomas one week. I performed a history & physical examination of the patient and discussed their management with my nurse practitioner, Mahogany Burton. I reviewed the nurse practitioner's note and agree with the documented findings and plan of care. Lung sounds are clear. The findings and the impression was discussed with the patient. I attest to the documentation by the nurse practitioner. Time with Patient: Less than 30
--- NOTE | 2018-05-29 09:52 | PN ---
PROGRESS NOTE Mr. Lara is a 62-year-old male, status post coronary artery bypass grafting. He is doing quite well this morning. He is denying any chest pain. He has been ambulating without difficulty. He denies any dizziness. No palpitation. He denies any nausea. No cough. He continued be on aspirin once a day, Plavix 75 mg daily, Lipitor 40 mg daily. He received a dose of Lasix. He is on metoprolol 50 mg twice a day. PHYSICAL EXAMINATION: Blood pressure 102/60. He is in the low 100s in sinus. LUNGS: No wheezes. HEART: Regular rate and rhythm S1, S2. No S3, plus rub. ABDOMEN: Soft, nontender. EXTREMITIES: Trace to 1+ edema. LAB DATA: Lab data revealed hemoglobin 10.4. BUN and creatinine 19 and 0.5. Potassium 4.4. He had a chest x-ray that revealed a small left apical pneumothorax. IMPRESSION: 1. Status post coronary artery bypass grafting. 2. Hyperlipidemia. 3. Sinus tachycardia. 4. Small pneumothorax. RECOMMENDATION: From the cardiac standpoint, he is stable. Patient received his dose of beta brayden. Will follow his rhythm. Continue to increase his heart rate and depending on his progress hopefully discharge home in the next 48 hours. MMODL / IJN: [id number] /
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
[2018-05-29] MEDS: metFORMIN 850 MG TAB PO SCH ×3 (10:38→16:45)
[2018-05-29 12:41] LABS: Glucose,Whole Blood 128 mg/dL (75-99)
[2018-05-29] MEDS ORDERED: MD COMMUNICATION TO PHARMACY 1 EACH MISC PO PRN (13:57)
[2018-05-29 16:45] LABS: Glucose,Whole Blood 110 mg/dL (75-99)
[2018-05-29 20:15] LABS: Glucose,Whole Blood 115 mg/dL (75-99)
[2018-05-29] MEDS: SENNOSIDES-DOCUSATE SODIUM 1 EACH TAB PO SCH (20:18)
[2018-05-30 04:45] LABS: Glucose,Whole Blood 121 mg/dL (75-99)
[2018-05-30 04:52] LABS: Basophils % (A) 0 %; Eosinophils # (A) 0.1 k/uL (0-0.7); Eosinophils % (A) 1 %; HCT 36.1 % (39.0-53.0); HGB 11.8 gm/dL (13.0-17.5); Lymphocytes # (A) 1.6 k/uL (1.0-4.8); Lymphocytes % (A) 16 %; MCHC 32.6 g/dL (31.0-37.0); MCV 97.9 fL (80.0-100.0); Mean Platelet Volume 8.3; Monocytes # (A) 0.8 k/uL (0-1.0); Monocytes % (A) 8 %; Neutrophils # (A) 7.4 k/uL (1.3-7.7); Neutrophils % (A) 72 %; RBC 3.69 m/uL (4.30-5.90); RDW 12.6 % (11.5-15.5); WBC 10.3 k/uL (3.8-10.6)
[2018-05-30 05:03] LABS: Platelet Count 154 k/uL (150-450)
[2018-05-30 05:09] LABS: ALT 28 U/L (21-72); AST 27 U/L (17-59); Albumin 3.3 g/dL (3.5-5.0); Alkaline Phosphatase 62 U/L (38-126); Anion Gap 9 mmol/L; Blood Urea Nitrogen 23 mg/dL (9-20); Carbon Dioxide 28 mmol/L (22-30); Chloride 102 mmol/L (98-107); Glucose 119 mg/dL (74-99); Sodium 139 mmol/L (137-145); Total Bilirubin 0.9 mg/dL (0.2-1.3); Total Protein 6.1 g/dL (6.3-8.2)
[2018-05-30 07:28] LABS: Glucose,Whole Blood 127 mg/dL (75-99)
[2018-05-30] MEDS: METOPROLOL TARTRATE 50 MG TAB PO SCH (07:54)
[2018-05-30] MEDS: IPRATROPIUM-ALBUTEROL 3 ML NEB INHALATION SCH ×3 (07:59→17:09)
--- NOTE | 2018-05-30 08:08 | PN ---
PROGRESS NOTE Mr. Lara is a 62-year-old male who underwent coronary artery bypass grafting. He is feeling well this morning, although he has some chills and he was sweaty. He continued in sinus mechanism, but he has a rate-related left bundle branch block. He denies any chest pain. According to him, his breathing is stable. He has no cough. No dizziness. No syncope. He has continued to be on aspirin once a day, Lipitor 40 mg daily, Plavix 75 mg daily, metoprolol tartrate 50 mg 3 times a day. PHYSICAL EXAMINATION: Blood pressure 120 to 150 with a heart rate in the 90s to low 100. LUNGS: A few crackles at bases, no wheezes. HEART: Regular rate and rhythm. S1, S2. No S3 with rub. No gallop. ABDOMEN: Soft, nontender. EXTREMITIES: Trace edema. LAB DATA: Lab data revealed BUN and creatinine 23 and 0.7. Hemoglobin of 11.8, white blood cell of 10.3. IMPRESSIONS: 1. Status post coronary artery bypass grafting. 2. Episode of sinus tachycardia with left bundle branch block related conduction. 3. Hyperlipidemia. 4. Small pneumothorax, stable. RECOMMENDATION: Will review the results of his chest x-ray. I see no clear source of his sinus tachycardia. Some of it could be related to a pericarditis postoperatively, although he has no significant fever and he has no chest pain. MMODL / IJN: [id number] /
--- NOTE | 2018-05-30 08:10 | XR ---
EXAMINATION TYPE: XR chest 1V portable DATE OF EXAM: 05/30/2018 Comparison: 05/29/2018 Clinical History: 62 year-old male shortness of breath 5 days post open heart surgery Findings: Heart borderline enlarged. Increasing small left pleural effusion with adjacent opacity. Small left a pical pneumothorax is unchanged. Possible trace right effusion. Impression: 1. Stable tiny left apical pneumothorax estimated at 5%. 2. Increasing small left pleural effusion and increasing adjacent left basilar atelectasis and/or con solidation. 3. A trace right effusion may be new.
--- NOTE | 2018-05-30 08:30 | P.PN ---
Subjective Progress Note Date: 05/30/18 Principal diagnosis: Multivessel coronary artery disease, status post triple vessel coronary artery bypass grafting, postop day 3 Mr. Lara is a 62-year-old white male patient with symptomatic coronary artery disease, status post coronary artery bypass grafting, with REDD to LAD, SVG to the diag, with endoscopic vessel harvesting, and intraoperative HARJEET, who we are seeing in consultation in the intensive care unit. He is sedated, on mechanical ventilator, his OR exit time was 1352. Patient is currently on SIMV mode of ventilation, with a rate of 12, tidal volume of 560, FiO2 of 100%, and PEEP of 5. His postop blood gases showed pO2 of 374, pCO2 59, pH of 7.29 on FiO2 100%. His respiratory rate was increased to 18, FiO2 was dropped down to 40%. Maintenance IV fluid is lactated Ringer's at a rate of 50 ML per hour, nitroglycerin drip is infusing at 5 mcg/min, clevidipine at 16 mg/hr, insulin at 5.5 u/hr, and propofol at 20 mcg/kg/min. patient was given 750 mL of Cell Saver Intra-Op, he is receiving 250 ML of 5% albumin. He is currently hypertensive, with blood pressure of 180/70, PA pressure 51 of 33, cardiac output and index are 6.0, and 2.6 respectively. There are 2 mediastinal chest tubes and one left pleural, and there is minimal sanguinous output. Atrioventricular epicardial wires are present, external pacemaker on backup. Postoperative chest x-ray showed bilbasilar consolidation and tiny pleural effusions, postoperative atelectasis. Patient's preop PFT was reviewed and it showed FEV1 of 1.6 L or 45% of predicted, consistent with severe obstruction. Patient's past medical history is significant for hypertension, COPD, previous tobacco dependence, marijuana use, hyperlipidemia, and family history of coronary artery disease. His preop echocardiogram showed an ejection fraction of 55%, mild mitral regurgitation, trace aortic insufficiency, and mild tricuspid regurg. His heart catheterization on 04/21/2018 showed complete total occlusion of the proximal LAD with collaterals to the LAD from the right coronary system, the circumflex and right coronary artery were free of any significant occlusive disease. LV gram showed an ejection fraction of 45-50%. On 05/29/2018 patient seen again in follow-up in intensive care unit. In no acute distress, denies any dyspnea, denies any chest pain. Surgical incisional pain is well controlled. He is on room air, and his pulse ox is 90-91%. Lung sounds are clear to auscultation, he is able to achieve 1250 ML on his incentive spirometry today. He is in sinus mechanism on a monitor, a bit tachycardic, with a heart rate in the low 100s. Cardiothoracic surgery is adjusting the dose of beta blockers. 0.9 normal saline at a rate of 10 ML per hour. Today's labs were reviewed, WBCs 10.3, hemoglobin is 10 point, he is 135 , the rest of the electrolytes and renal profile are all within normal limits. His chest x-ray has been reviewed by Dr. Hogue, shows a stable 5% left apical pneumothorax, and and pleural thickening on the right. Patient's chest tubes have been discontinued, he has been ambulating, tolerating activity well. He is anticipated to be discharged home today. On 05/30/2018 patient seen again in follow-up in the intensive care unit. Patient is a selective overflow. Afebrile, vital signs are stable, remains tachycardic with a heart rate between 99-103 BPM. Hemodynamically stable, denies any pain, lung sounds are clear to auscultation, today's chest x-ray has been reviewed, patient has a stable tiny left apical pneumothorax estimated at 5 %, and small left pleural effusion that seems to be slightly increased from yesterday's chest x-ray, and increasing adjacent left basilar atelectasis. Patient's beta blockers have been increased per CT surgery. His labs have been reviewed, the CBC is 10.3, hemoglobin is 11.8, electrolytes are within normal limits, B1 is 23, creatinine 0.70. Patient received a dose of IV Lasix yesterday. Denies any dyspnea, denies any chest pain, midsternal incision is clean dry and intact stable, chest tube sites are clean, left leg incision clean dry and intact. Epicardial wires were discontinued yesterday. Objective - Vital Signs Vital signs: Vital Signs Temp 98.7 F 05/30/18 04:00 Pulse 102 H 05/30/18 06:00 Resp 31 H 05/30/18 06:00 BP 154/89 05/30/18 06:00 Pulse Ox 98 05/30/18 04:00 Intake & Output 05/29/18 05/30/18 05/30/18 18:59 06:59 18:59 Intake Total 10 50 50 Output Total 1000 300 300 Balance -990 -250 -250 Weight 110.8 kg Intake: IV 10 Lactated Ringers 1,000 ml 10 @ 20 mls/hr IV .Q24H [facility] Rx#:[id number] Oral 50 50 Output: Urine 1000 300 300 Other: Voiding Method Urinal Urinal ABP, PAP, CO, CI - Last Documented Arterial Blood Pressure 105/86 Pulmonary Artery Pressure 129/129 Cardiac Output 7.2 Cardiac Index 3.5 - Exam - Constitutional General appearance: no acute distress, obese - EENT Eyes: EOMI ENT: NA/AT - Neck Neck: no lymphadenopathy, normal ROM Thyroid: bilateral: normal size - Respiratory Respiratory: bilateral: CTA - Cardiovascular Rhythm: regular Heart sounds: normal: S1, S2 Peripheral Edema: absent: None foot Peripheral Edema: absent: None dorsalis pedis Peripheral Pulses: bilateral: Normal radial pulse Peripheral Pulses: bilateral: Normal - Gastrointestinal General gastrointestinal: no organomegaly, soft, no tenderness - Integumentary Midsternal incision, clean dry and intact, covered with surgical dressing, 2 mediastinal and left pleural chest tubes have been discontinued. Atrial ventricular pacemaker wires have been discontinued Integumentary: normal turgor - Neurologic No focal neurological deficits noted. - Labs CBC & Chem 7: 05/30/18 04:35 05/30/18 04:35 Labs: Abnormal Lab Results - Last 24 Hours (Table) 05/29/18 05/29/18 05/29/18 Range/Units 12:40 16:44 20:14 RBC (4.30-5.90) m/uL Hgb (13.0-17.5) gm/dL Hct (39.0-53.0) % BUN (9-20) mg/dL Glucose (74-99) mg/dL POC Glucose (mg/dL) 128 H 110 H 115 H (75-99) mg/dL Total Protein (6.3-8.2) g/dL Albumin (3.5-5.0) g/dL 05/30/18 05/30/18 05/30/18 Range/Units 04:35 04:35 04:43 RBC 3.69 L (4.30-5.90) m/uL Hgb 11.8 L (13.0-17.5) gm/dL Hct 36.1 L (39.0-53.0) % BUN 23 H (9-20) mg/dL Glucose 119 H (74-99) mg/dL POC Glucose (mg/dL) 121 H (75-99) mg/dL Total Protein 6.1 L (6.3-8.2) g/dL Albumin 3.3 L (3.5-5.0) g/dL 05/30/18 Range/Units 07:27 RBC (4.30-5.90) m/uL Hgb (13.0-17.5) gm/dL Hct (39.0-53.0) % BUN (9-20) mg/dL Glucose (74-99) mg/dL POC Glucose (mg/dL) 127 H (75-99) mg/dL Total Protein (6.3-8.2) g/dL Albumin (3.5-5.0) g/dL Assessment and Plan Plan: Assessment: #1. Symptomatic multivessel coronary artery disease, status post two-vessel coronary artery bypass grafting, REDD to LAD, SVG to the diagonal branch, post- op day 4 #2. Routine postop CABG ventilator management #3. History of COPD, preop bedside spirometry showed severe obstruction, with FEV1 1.6 L or 45% of predicted, consistent with GOLD stage III COPD #4. Past history of nicotine dependence and current daily marijuana use #5. Hypertension, hyperlipidemia #6. Ischemic cardiomyopathy, with EF of 45-50% #7. Mild mitral regurgitation, trace aortic insufficiency by echocardiogram on 04/05/2018 Plan: Patient is doing well, still awaiting a bed on selective care unit, tolerating ambulation, denies any dyspnea, today's chest x-ray shows left pleural effusion and adjacent atelectasis. Continue pulmonary toileting, IV diuretics per CT surgery. Remains tachycardic with a heart rate in the low 100s, his beta brayden dose is being adjusted per CT surgery as well. Otherwise no specific complaints, denies any pain, main stable from pulmonary standpoint. I performed a history & physical examination of the patient and discussed their management with my nurse practitioner, Mahogany Burton. I reviewed the nurse practitioner's note and agree with the documented findings and plan of care. Lung sounds are clear. The findings and the impression was discussed with the patient. I attest to the documentation by the nurse practitioner. Time with Patient: Less than 30
--- NOTE | 2018-05-30 08:53 | PN ---
PROGRESS NOTE Mr. Lara is a 62-year-old male status post coronary artery bypass grafting. He is doing well this morning. He had some feeling of chills this morning. He has no dizziness or palpitation. He has no nausea. He is in sinus mechanism with episode of sinus tachycardia and rate related left bundle branch block. He continues to be at this time on aspirin once a day, Lipitor 40 mg daily, Plavix 75 mg daily, metoprolol tartrate 25 mg 3 times a day. PHYSICAL EXAMINATION: Blood pressure running in the 120s to 150s with the heart rate in the one teens. LUNGS: No wheezes with mild crackles. HEART: Regular rate and rhythm, S1, S2. No S3 with a soft rub. ABDOMEN: Soft, nontender. EXTREMITIES: No significant edema. LAB DATA: Lab data revealed a hemoglobin 11.8, BUN and creatinine 23 and 0.7. IMPRESSION: 1. Status post coronary artery bypass grafting. 2. Rate related left bundle branch block. 3. Hyperlipidemia. RECOMMENDATION: His chest x-ray revealed small effusion on the left side. His sinus tachycardia etiology is unclear. We will continue to observe him closely. His dose of beta brayden will be increased and depending on his progress, further recommendation will be made. MMODL / IJN: [id number] /
[2018-05-30] MEDS ORDERED: ATORVASTATIN 40 MG TAB PO SCH (09:00)
[2018-05-30] MEDS: INSULIN ASPART 100 UNIT/ML 1 ML 10 ML VIAL SQ SCH ×3 (09:02→17:27)
[2018-05-30] MEDS: INSULN ASP PRT/INSULIN ASPART 100 UNIT/ML 10 ML VIAL SQ SCH (09:02)
[2018-05-30] MEDS: HEPARIN SODIUM,PORCINE 5,000 UNIT/ML 1 ML VIAL SQ SCH ×2 (09:04→16:23)
[2018-05-30] MEDS: ASPIRIN 325 MG TAB PO SCH (09:04)
[2018-05-30] MEDS: metFORMIN 850 MG TAB PO SCH ×2 (09:04→17:29)
[2018-05-30] MEDS: PANTOPRAZOLE 40 MG TABLET PO SCH (09:04)
[2018-05-30] MEDS: CLOPIDOGREL 75 MG TAB PO SCH (09:07)
[2018-05-30 10:34] VITALS: BMI 34.0
[2018-05-30 11:27] VITALS: RESP 24
[2018-05-30] MEDS: KETOROLAC 30 MG/ML 1 ML VIAL IVP SCH ×3 (11:29→17:28)
[2018-05-30 12:16] LABS: Glucose,Whole Blood 118 mg/dL (75-99)
--- NOTE | 2018-05-30 12:25 | P.PN ---
Subjective Progress Note Date: 05/30/18 (late entry seen at 0845) Principal diagnosis: chest pain Patient is a 62-year-old male with a past medical history of coronary artery disease, COPD, hypertension, dyslipidemia, and suboptimal medical care who presented for coronary artery bypass grafting. Patient underwent two- vessel bypass grafting with REDD to LAD and SVG to diagonal, with endoscopic vessel harvesting intraoperative HARJEET. He has recovered well. We're asked to consult for medical management. He initially was on an insulin drip but this has been discontinued and currently on oral therapy. His outpatient preoperative testing was reviewed with hemoglobin A1c was 7.4 consistent with diabetes. Patient seen and examined at bedside in the ICU. He denies any chest pain, shortness of breath, nausea, or vomiting. He is willing to take metformin once daily. He is unsure whether he is willing to test his blood sugar but will let home health care test his blood sugar when they are available. We also discussed the risks of not treating his diabetes such as surgical site infection , failure of his bypass grafting, amputations, and possible need for dialysis. I also told him he will need a foot exam and eye exam. I also encouraged him not walk barefoot. Objective - Vital Signs Vital signs: Vital Signs Temp 99 F 05/30/18 08:00 Pulse 84 05/30/18 12:00 Resp 24 05/30/18 11:47 BP 149/85 05/30/18 11:00 Pulse Ox 89 L 05/30/18 11:00 Intake & Output 05/29/18 05/30/18 05/30/18 18:59 06:59 18:59 Intake Total 10 50 350 Output Total 1000 300 500 Balance -990 -250 -150 Weight 110.8 kg 110.8 kg Intake: IV 10 Lactated Ringers 1,000 ml 10 @ 20 mls/hr IV .Q24H [facility] Rx#:[id number] Oral 50 350 Output: Urine 1000 300 500 Other: Voiding Method Urinal Urinal Urinal # Voids 1 ABP, PAP, CO, CI - Last Documented Arterial Blood Pressure 105/86 Pulmonary Artery Pressure 129/129 Cardiac Output 7.2 Cardiac Index 3.5 - Exam General: non toxic, no distress, appears at stated age, obese Derm: warm, dry Head: atraumatic, normocephalic, symmetric Eyes: EOMI, no lid lag, anicteric sclera Mouth: no lip lesion, mucus membranes moist Cardiovascular: S1S2 reg, no murmur, positive posterior tibial pulse bilateral, Lungs: Decreased bilaterally without wheezing, no accessory muscle use Abdominal: soft, nontender to palpation, no guarding, no appreciable organomegaly Ext: no gross muscle atrophy, no edema, no contractures Neuro: CN II-XI grossly intact, no focal neuro deficits Psych: Alert, oriented, appropriate affect - Labs CBC & Chem 7: 05/30/18 04:35 05/30/18 04:35 Labs: Abnormal Lab Results - Last 24 Hours (Table) 05/29/18 05/29/18 05/29/18 Range/Units 12:40 16:44 20:14 RBC (4.30-5.90) m/uL Hgb (13.0-17.5) gm/dL Hct (39.0-53.0) % BUN (9-20) mg/dL Glucose (74-99) mg/dL POC Glucose (mg/dL) 128 H 110 H 115 H (75-99) mg/dL Total Protein (6.3-8.2) g/dL Albumin (3.5-5.0) g/dL 05/30/18 05/30/18 05/30/18 Range/Units 04:35 04:35 04:43 RBC 3.69 L (4.30-5.90) m/uL Hgb 11.8 L (13.0-17.5) gm/dL Hct 36.1 L (39.0-53.0) % BUN 23 H (9-20) mg/dL Glucose 119 H (74-99) mg/dL POC Glucose (mg/dL) 121 H (75-99) mg/dL Total Protein 6.1 L (6.3-8.2) g/dL Albumin 3.3 L (3.5-5.0) g/dL 05/30/18 05/30/18 Range/Units 07:27 12:05 RBC (4.30-5.90) m/uL Hgb (13.0-17.5) gm/dL Hct (39.0-53.0) % BUN (9-20) mg/dL Glucose (74-99) mg/dL POC Glucose (mg/dL) 127 H 118 H (75-99) mg/dL Total Protein (6.3-8.2) g/dL Albumin (3.5-5.0) g/dL Assessment and Plan Assessment: New Diabetes Mellitus - D/W patient dietary changes. - discharge home on Metformin 750mg XR - check blood sugar once daily in AM before breakfast - BMP in 2 weeks - Needs out patient optho and foot exam as baseline (Will notify PCP to schedule ) - subassembler and dietitian recs - provide with glucometer and test strips sample, follow up with PCP for full RX. - Patient has not demonstrated fci compliance to be considered for outpatient insulin. - Will also have home health following - asked patient to make a log of blood sugars for his PCP to review. CAD s/p 2 vessel bypass - Managed by primary team - ASA, plavix, lopressor, statin, aldactone HTN - controlled - continue lopressor COPD without exacerbation - pulmonary following - on bronchodilators Ischemic cardiomyopathy with EF- 45-50% - lopressor, statin, aldactone, resume home lisinopril if BP will tolerate - Cardio following
[2018-05-30] MEDS ORDERED: METOPROLOL TARTRATE 25 MG TAB PO STA (12:36)
[2018-05-30] MEDS ORDERED: FUROSEMIDE 10 MG/ML 2 ML VIAL IV STA (12:37)
--- NOTE | 2018-05-30 13:05 | P.PN ---
Subjective Progress Note Date: 05/30/18 Principal diagnosis: Coronary artery disease. Previous medical history of hypertension, severe COPD with a preoperative FEV1 of 45% of predicted, previous tobacco dependence, marijuana use, hyperlipidemia, and family history of coronary artery disease, obesity. POD #4 coronary artery bypass grafting 2 vessels, left internal mammary artery to left anterior descending artery, reverse saphenous vein graft to diagonal artery. Patch angioplasty of left anterior descending artery. Endoscopic vein harvest of the left greater saphenous vein. Intraoperative transesophageal echocardiogram and epi-aortic ultrasound. Patient's currently sitting up in the chair in no acute distress. States pain is controlled on ordered pain medication. Patient insistent on going home today. Refusing to eat yesterday, does not want to have a bowel movement in the hospital despite the fact he feels he does have to go. Patient is tachycardic this morning. Objective - Vital Signs Vital signs: Vital Signs Temp 99 F 05/30/18 08:00 Pulse 84 05/30/18 12:00 Resp 24 05/30/18 11:47 BP 149/85 05/30/18 11:00 Pulse Ox 89 L 05/30/18 11:00 Intake & Output 05/29/18 05/30/18 05/30/18 18:59 06:59 18:59 Intake Total 10 50 350 Output Total 1000 300 500 Balance -990 -250 -150 Weight 110.8 kg 110.8 kg Intake: IV 10 Lactated Ringers 1,000 ml 10 @ 20 mls/hr IV .Q24H [facility] Rx#:[id number] Oral 50 350 Output: Urine 1000 300 500 Other: Voiding Method Urinal Urinal Urinal # Voids 1 ABP, PAP, CO, CI - Last Documented Arterial Blood Pressure 105/86 Pulmonary Artery Pressure 129/129 Cardiac Output 7.2 Cardiac Index 3.5 - Constitutional General appearance: Present: no acute distress, obese - Respiratory Details: Lungs sounds diminished bilaterally with fine crackles in the bases. Respirations even, nonlabored. Currently on room air with oxygen saturations 88 -91%. Able to achieve 1500 mL on his incentive spirometry. Effective cough with productive yellow sputum. - Cardiovascular Details: S1, S2 present, positive rub. Tachycardic but regular rate and rhythm, sinus tach with a bundle branch block on telemetry. Sternum stable. Palpable peripheral pulses bilaterally. No edema present. No calf pain or tenderness noted. Heart hugger in place with patient demonstrating appropriate use. Antiembolism stockings, SCDs present. - Gastrointestinal Gastrointestinal Comment(s): Abdomen soft, nontender, nondistended, obese. Active bowel sounds present 4 quadrants. Tolerating diet. Positive flatus. - Genitourinary Genitourinary Comment(s): Continues to void clear, yellow urine. - Integumentary Integumentary Comment(s): Skin is warm and dry with evidence of good perfusion. Anterior chest incision well approximated and covered with dry intact dressing. Left lower extremity EVH site well approximated. - Neurologic Neurologic: Present: CNII-XII intact - Musculoskeletal Musculoskeletal: Present: gait normal, strength equal bilaterally - Psychiatric Psychiatric: Present: A&O x's 3, appropriate affect, intact judgment & insight - Allied health notes Allied health notes reviewed: nursing - Labs CBC & Chem 7: 05/30/18 04:35 05/30/18 04:35 Labs: Abnormal Lab Results - Last 24 Hours (Table) 05/29/18 05/29/18 05/30/18 Range/Units 16:44 20:14 04:35 RBC 3.69 L (4.30-5.90) m/uL Hgb 11.8 L (13.0-17.5) gm/dL Hct 36.1 L (39.0-53.0) % BUN (9-20) mg/dL Glucose (74-99) mg/dL POC Glucose (mg/dL) 110 H 115 H (75-99) mg/dL Total Protein (6.3-8.2) g/dL Albumin (3.5-5.0) g/dL 05/30/18 05/30/18 05/30/18 Range/Units 04:35 04:43 07:27 RBC (4.30-5.90) m/uL Hgb (13.0-17.5) gm/dL Hct (39.0-53.0) % BUN 23 H (9-20) mg/dL Glucose 119 H (74-99) mg/dL POC Glucose (mg/dL) 121 H 127 H (75-99) mg/dL Total Protein 6.1 L (6.3-8.2) g/dL Albumin 3.3 L (3.5-5.0) g/dL 05/30/18 Range/Units 12:05 RBC (4.30-5.90) m/uL Hgb (13.0-17.5) gm/dL Hct (39.0-53.0) % BUN (9-20) mg/dL Glucose (74-99) mg/dL POC Glucose (mg/dL) 118 H (75-99) mg/dL Total Protein (6.3-8.2) g/dL Albumin (3.5-5.0) g/dL - Imaging and Cardiology Chest x-ray: report reviewed, image reviewed Assessment and Plan (1) Coronary artery disease Current Visit: Yes Status: Chronic Code(s): I25.10 - ATHSCL HEART DISEASE OF [place] CORONARY ARTERY W/O ANG PCTRS SNOMED Code(s): 88344074 (2) COPD (chronic obstructive pulmonary disease) Current Visit: Yes Status: Chronic Code(s): J44.9 - CHRONIC OBSTRUCTIVE PULMONARY DISEASE, UNSPECIFIED SNOMED Code(s): 13767516 (3) Family history of coronary artery disease in father Current Visit: Yes Status: Chronic Code(s): Z82.49 - FAMILY HX OF ISCHEM HEART DIS AND OTH DIS OF THE CIRC SYS SNOMED Code(s): 194479610 (4) Hyperlipidemia Current Visit: Yes Status: Chronic Code(s): E78.5 - HYPERLIPIDEMIA, UNSPECIFIED SNOMED Code(s): 08847275 (5) Hypertension Current Visit: Yes Status: Chronic Code(s): I10 - ESSENTIAL (PRIMARY) HYPERTENSION SNOMED Code(s): 73076140 (6) Marijuana use Current Visit: Yes Status: Chronic Code(s): F12.90 - CANNABIS USE, UNSPECIFIED, UNCOMPLICATED SNOMED Code(s): 353985566 (7) Tobacco dependence in remission Current Visit: Yes Status: Resolved Code(s): F17.201 - NICOTINE DEPENDENCE, UNSPECIFIED, IN REMISSION SNOMED Code(s): 713779946 Plan: 1. Continue aspirin, statin, Plavix, heparin subcu, beta brayden. Will increase beta brayden therapy as tolerated. 2. Will give Lasix 20 mg IV push 1 today. 3. Encourage incentive spirometry use 10 times every hour. 4. Encourage continued smoking cessation. 5. GI/DVT prophylaxis. 6. Diabetic management per primary care service. 7. Pain management with ordered medication regimen. 8. Bronchodilators per pulmonology service. 9. Increase activity, ambulate in hallway. PT/OT/cardiac rehab following. 10. Follow-up DrRyder appointments made, patient to have lab work done in 3 days. 11. Patient needs to have home oxygen evaluation. 12. Anticipate possible discharge later this afternoon to home with home care. Time with Patient: Greater than 30
--- NOTE | 2018-05-30 14:59 | P.DS ---
Providers Date of admission: 05/26/18 05:33 Expected date of discharge: 05/30/18 Attending physician: Adonis Valle Consults: 05/26/18 13:27 Consult Physician Routine Consulting Provider: Robert Thomas Consult Reason/Comments: Allergist/Md Consult: post cardiac surgery Do you want consulting provider notified?: Yes Consult Physician Routine Consulting Provider: Yuko Gerber Consult Reason/Comments: medical management Do you want consulting provider notified?: Yes Consult Physician Routine Consulting Provider: Jean Pierre Mckeon Consult Reason/Comments: Electrician Assistant Consult: post cardiac surgery Do you want consulting provider notified?: Yes Primary care physician: Caesar Rankin MD - Discharge Diagnosis(es) (1) Coronary artery disease Current Visit: Yes Status: Chronic (2) COPD (chronic obstructive pulmonary disease) Current Visit: Yes Status: Chronic (3) Family history of coronary artery disease in father Current Visit: Yes Status: Chronic (4) Hyperlipidemia Current Visit: Yes Status: Chronic (5) Hypertension Current Visit: Yes Status: Chronic (6) Marijuana use Current Visit: Yes Status: Chronic (7) Tobacco dependence in remission Current Visit: Yes Status: Resolved Hospital Course: FINAL DIAGNOSIS: 1. Coronary artery disease 2. Hypertension 3. Severe COPD with FEV1 45% of predicted 4. Previous tobacco dependence 5. Daily marijuana use 6. Hyperlipidemia 7. Family history of coronary artery disease 8. Obesity PRINCIPAL PROCEDURE: 1. Coronary artery bypass grafting 2 vessels, left internal mammary artery to the left anterior descending artery, reverse saphenous vein graft to the diagonal artery with patch angioplasty of the left anterior descending artery 2. Endoscopic vein harvest of the left greater saphenous vein 3. Intraoperative transesophageal echocardiogram 4. Epi-aortic ultrasound HISTORY OF PRESENT ILLNESS: This is a 62-year-old gentleman who follows with Dr. Surendra Rankin on an outpatient basis. He is self-employed as a beltre. He was experiencing exertional angina with lack of energy interest of breath which was relieved with rest. He presented to his primary care physician's office, had a stress test which demonstrated both fixed and reversible ischemia with an ejection fraction of 41%. He was recommended to see a director of strategic sales and was seen by Dr. Nick from cardiology associates. An echocardiogram was completed demonstrating normal LV function with an ejection fraction of 50% with no significant valvular pathology. He was recommended to undergo heart catheterization which demonstrated complete total occlusion of the proximal LAD with collaterals from the RCA to the distal LAD and ipsilateral collaterals filling the first diagonal coronary artery. LV gram completed demonstrated an ejection fraction of 45-50%. The patient was referred to Dr. Valle from cardiothoracic surgery. He was recommended to undergo coronary artery bypass grafting. All risks and benefits were explained in detail to the patient and his family, all questions were answered, and consent was obtained to proceed with surgery. HOSPITAL COURSE: The patient was brought to the hospital on 05/26/2018, taken to the preoperative area, prepared in the usual fashion, and subsequently taken to the operating room where Dr. Valle performed coronary artery bypass grafting 2 vessels, left internal mammary artery to the left anterior descending artery , reverse saphenous vein graft to the diagonal artery with patch angioplasty of the left anterior descending artery, endoscopic vein harvest of the left greater saphenous vein, intraoperative transesophageal echocardiogram, and epi- aortic ultrasound. Upon completion of surgery the patient was transferred to the cardiovascular intensive care unit where he was recovered, monitored hemodynamically, and where he progressed to cardiac rehabilitation phase 1. He was extubated, all lines, tubes, and drips were discontinued when appropriate, and orders were placed for transfer to [facility] care for further monitoring and rehabilitation, however there was no bed availability on [facility] and the patient remained as an overflow patient in the intensive care unit. His oxygen was titrated down, he continued to work with physical and occupational therapy, he was tolerating oral diet, his pain was controlled, and he was ready to be discharged to home with home care on postoperative day #4. He received written and verbal instruction regarding his medications, activity restrictions, signs and symptoms requiring physician notification, and follow- up appointments. COMPLICATIONS: The patient experienced no postoperative complications. Plan - Discharge Summary Discharge Rx Participant: Yes New Discharge Prescriptions: New metFORMIN HCL [metFORMIN HCL ER] 750 mg PO DAILY #30 tab Aspirin 325 mg PO DAILY #30 tab Clopidogrel [Plavix] 75 mg PO DAILY #30 tab Furosemide [Lasix] 20 mg PO DAILY #7 tablet Metoprolol Tartrate [Lopressor] 75 mg PO BID #180 tab Pantoprazole [Protonix] 40 mg PO AC-BRKFST #30 tablet. Sennosiderebeca-Docusate Sodium [Senokot-S] 2 each PO HS PRN tab PRN Reason: Constipation Rosuvastatin [Crestor] 20 mg PO HS #30 tablet Discontinued Carvedilol [Coreg] 3.125 mg PO BID Isosorbide Mononitrate ER [Imdur] 30 mg PO DAILY amLODIPine BESYLATE [Norvasc] 5 mg PO DAILY Aspirin 81 mg PO DAILY Ibuprofen 400 - 800 mg PO DAILY PRN PRN Reason: Pain Nitroglycerin Sl Tabs [Nitrostat] 0.4 mg SUBLINGUAL Q5M PRN tab PRN Reason: Chest Pain Lisinopril [Zestril] 5 mg PO DAILY Atorvastatin [Lipitor] 40 mg PO HS Discharge Medication List metFORMIN HCL [metFORMIN HCL ER] 750 mg PO DAILY #30 tab 05/29/18 [Rx] Aspirin 325 mg PO DAILY #30 tab 05/30/18 [Rx] Clopidogrel [Plavix] 75 mg PO DAILY #30 tab 05/30/18 [Rx] Furosemide [Lasix] 20 mg PO DAILY #7 tablet 05/30/18 [Rx] Metoprolol Tartrate [Lopressor] 75 mg PO BID #180 tab 05/30/18 [Rx] Pantoprazole [Protonix] 40 mg PO AC-BRKFST #30 tablet. 05/30/18 [Rx] Rosuvastatin [Crestor] 20 mg PO HS #30 tablet 05/30/18 [Rx] Sennosides-Docusate Sodium [Senokot-S] 2 each PO HS PRN tab 05/30/18 [Rx] Follow up Appointment(s)/Referral(s): Reymundo Richard NPC [Nurse Practitioner] - 06/02/18 11:00 am Robert Thomas DO [Doctor of Osteopathic Medicine] - 06/23/18 10:15 am [facility], [NON-STAFF] - Caesar Rankin MD [Primary Care Provider] - 06/08/18 9:00 am Adonis Valle MD [STAFF PHYSICIAN] - 06/30/18 10:00 am Jean Pierre Mckeon MD [STAFF PHYSICIAN] - 06/08/18 4:15 pm Ambulatory/Diagnostic Orders: Basic Metabolic Panel [LAB.AMB] Location: None Selected Basic Metabolic Panel [LAB.AMB] Location: None Selected Complete Blood Count w/diff [LAB.AMB] Time Frame: 3 Days, Location: None Selected Comprehensive Metabolic Panel [LAB.AMB] Time Frame: 3 Days, Location: None Selected Patient Instructions/Handouts: Sternal Precautions (GEN), Coronary Artery Bypass Graft (DC), Coronary Artery Bypass Graft (GEN) Activity/Diet/Wound Care/Special Instructions: Check Blood sugars once daily in the morning prior to eating. Make a written record of the date, time, and what your blood sugar levels was and bring it to your appointment with Dr. Rankin. DISCHARGE INSTRUCTIONS: 1. No driving for 4 weeks, or until physician gives their ok. 2. The patient should sleep in their own bed, no medical bed needed. 3. Stairs are not an issue. If the bedroom is upstairs, it is advised that the patient go up at night and down in the morning for the first week. Go slowly, using handrail and take 1 step at a time. 4. MILA hose are to be worn for 30 days or until physician discontinues. 5. Heart hugger is to be worn 100% of the time until physician discontinues.( except when showering) 6. No lifting, pushing, or pulling more than 10 pounds for 12 weeks. The physician will advise of any restriction changes. 7. The patient is expected to continue the prescribed walking program. 8. Continue pain control per as needed orders. 9. Continue with incentive spirometry and splinting/heart hugger until otherwise directed by the physician. 10. Must shower daily using liquid antibacterial soap and a separate white washcloth for each individual incision. 11. Routine sternal incision care. No powders, lotions, ointments on incisions. 12. Please call surgeon/FIBERGLASS AUTOBODY REPAIRER for temp greater than 101 F or purulent drainage from incisions. 13. Narcotic medications were discussed with the patient, including the potential for misuse, addiction, and abuse. Opiod Start Talking form was reviewed with the patient. 14. All prescriptions given by surgeon for 30 days. Refills need to be filled through director of strategic sales/primary care physician. 15. A Red armband has been placed on the patient. It should be worn for 30 days post surgery and will be removed by the cardiac surgeons. If an ER visit is necessary, please make sure the number on the Red armband is called. HOME HEALTH SERVICES TO PROVIDE: RN SKILLED HOME CARE SERVICES FOR POST-OP SURGICAL PATIENTS WITH THE FOLLOWING: Coronary Artery Bypass Surgery (CABG), Mitral Valve Replacement/ Repair ( MVR), Aortic Valve Replacement/Repair (AVR) RN TO CONTINUE EDUCATION FROM ``ROAD TO A HEALTH HEART PATIENT EDUCATION MANUAL (GIVEN TO PATIENT IN THE HOSPITAL) MEDICATION RECONCILIATION WITH EDUCATION NEEDED ON FIRST HOME VISIT EMPHASIZE IMPORTANCE OF WEARING BREAST SUPPORT/HEART HUGGER ENCOURAGE USE OF INCENTIVE SPIROMETER 10 X EVERY HOUR WHILE AWAKE ENCOURAGE UTILIZATION OF LOWER EXTREMITY COMPRESSION STOCKINGS/MILA HOSE and ELEVATE LEGS ABOVE LEVEL OF HEART WHILE AT REST. ENCOURAGE AMBULATION 3-5x/day INCREASING TOLERATES, WHILE AVOID EXTREMES IN TEMPERATURE FREQUENCY: RN TO OPEN THE PATIENT WITHIN 24 HOURS OF DISCHARGE FROM THE HOSPITAL WITH TELEHEALTH INSTALLED AT [facility] – [place], RN TO VISIT 2-3 X A WEEK FOR 4 WEEKS ESTABLISHED BY PATIENT NEEDS. LABORATORY: CBC, CMP TO BE DRAWN ON THE THIRD DAY HOME, (RAN STAT) FAX RESULTS TO [phone]. TELEHEALTH PARAMETERS: WEIGHT: NOTIFY MD OF WEIGHT GAIN OF 2 LBS IN 24 HOURS OR 5 LBS IN ONE WEEK HR: NOTIFY MD OF HR <55 BPM OR HR>100 BPM BP: NOTIFY MD IF BP <90/55 OR BP>140/100 O2 SAT: NOTIFY MD IF PO2<93% ON ROOM AIR SEND TELEHEALTH REPORT TO [employer]CHOOL BASEBALL COACH AND CARDIOVASCULAR SURGEON THE FIRST WEEK OF CARE AND THEN BI-WEEKLY. PLEASE ADDITIONALLY COMMUNICATE ANY ABNORMALS AND NEW FINDINGS TO THE SURGEONS OFFICE. Discharge Disposition: HOME WITH HOME HEALTH SERVICES
[2018-05-30 15:15] VITALS: BP 145/70; TEMP 98.3
[2018-05-30] MEDS ORDERED: METOPROLOL TARTRATE 50 MG TAB PO SCH (16:00)
[2018-05-30 17:20] VITALS: PULSE 90
[2018-05-30 17:20] LABS: Glucose,Whole Blood 127 mg/dL (75-99)
[2018-05-30] MEDS ORDERED: METOPROLOL TARTRATE 25 MG TAB PO SCH (21:00)
--- NOTE | 2018-05-31 12:00 | CDI ---
Stable 5% left apical pneumothorax, an expected post-surgical condition status post Coronary Artery Bypass Grafting Documentation Clarification Form Date: 05/31/18 CDS: Giovanna Velez RN Admit Date: 05/26/18 Patient Name: Micheal Lara Discharge date: 05/30/18 ATTENTION: The Clinical Documentation Specialists (CDI) and [facility] Coding Staff appreciate your assistance in clarifying documentation. Please respond to the clarification below the line at the bottom and electronically sign. The CDI & [facility] Coding staff will review the response and follow-up if needed. Please note: Queries are made part of the Legal Health Record. If you have any questions, please contact the author of this message via ITS. Dr. Davi Hogue, Pneumothorax is documented in the PN's dated 05/29 & 05/30. Patients Admitting Diagnosis: Coronary artery disease, Pt. had a CABG on 05/26. Post-Operative Diagnosis: Coronary artery disease Procedure performed: CABG History/Risk Factors: HTN, COPD, hyperlipidemia, angina, x smoker Clinical Indicators: CXR 05/29 Stable 5% left apical pneumothorax Treatment: Chest tube on left side Consults: Cardiology In order to accurately reflect this patients severity of illness An expected post-procedural or post-surgical condition; Integral to the procedure; Inherent to the procedure; An expected post-procedural condition An unexpected post-procedural or post-surgical condition related to surgical care; Other, please specify Unable to determine Please continue to document in your progress notes, under the line below and/or in the discharge summary in order to capture severity of illness and risk of mortality. Include clinical findings that support your diagnosis. An expected post-procedural condition MTDD
== END 2018-05-30 18:47 | disposition home health service (06) | DRG 236 ==
LOC: 2ORMAIN 05:33 → 6ICU 14:16
PROVIDERS: ADMIT Surgery; ATTEND Surgery
PROC: 06BQ4ZZ Excision of Left Saphenous Vein, Percutaneous Endoscopic Approach (ICD-10-PCS; 2018-05-26)
PROC: 5A1221Z Performance of Cardiac Output, Continuous (ICD-10-PCS; 2018-05-26)
PROC: B246ZZ4 Ultrasonography of Right and Left Heart, Transesophageal (ICD-10-PCS; 2018-05-26)
PROC: 30233N0 Transfusion of Autologous Red Blood Cells into Peripheral Vein, Percutaneous Approach (ICD-10-PCS; 2018-05-26)
PROC: 02100Z9 Bypass Coronary Artery, One Artery from Left Internal Mammary, Open Approach (ICD-10-PCS; principal; 2018-05-26 08:00)
PROC: 021009W Bypass Coronary Artery, One Artery from Aorta with Autologous Venous Tissue, Open Approach (ICD-10-PCS; 2018-05-26 08:00)
DX: I25.119 Atherosclerotic heart disease of native coronary artery with unspecified angina pectoris (principal); J93.9 Pneumothorax, unspecified; I25.82 Chronic total occlusion of coronary artery; I34.0 Nonrheumatic mitral (valve) insufficiency; I44.7 Left bundle-branch block, unspecified; I25.5 Ischemic cardiomyopathy; E11.9 Type 2 diabetes mellitus without complications; I10 Essential (primary) hypertension; J44.9 Chronic obstructive pulmonary disease, unspecified; E78.5 Hyperlipidemia, unspecified; E66.9 Obesity, unspecified; Z68.34 Body mass index [BMI] 34.0-34.9, adult; F17.201 Nicotine dependence, unspecified, in remission; H91.90 Unspecified hearing loss, unspecified ear; Z79.82 Long term (current) use of aspirin; Z79.899 Other long term (current) drug therapy; Z90.49 Acquired absence of other specified parts of digestive tract; Z87.81 Personal history of (healed) traumatic fracture; Z82.49 Family history of ischemic heart disease and other diseases of the circulatory system; Z82.0 Family history of epilepsy and other diseases of the nervous system
CPT/HCPCS: 71045; 71046; 80053; 82330; 82805; 83735; 85025; 85520; 85610; 85730; 86850; 86891; 86900; 86901; 86920; 94002; 94640

== ENCOUNTER 2023-10-17 14:54 | Emergency (ER) | payer MEDICARE, OTHER ==
[2023-10-17 15:15] VITALS: TEMP 98.2
[2023-10-17] MEDS ORDERED: HYDROmorphone 0.5 MG/0.5 ML SYRINGE IVP STA ×2 (15:42→17:40)
[2023-10-17] MEDS ORDERED: SODIUM CHLORIDE 0.9% 1,000 ML IV STA (15:42)
[2023-10-17] MEDS ORDERED: ONDANSETRON 4 MG/2 ML VIAL IVP STA ×2 (15:42→17:40)
[2023-10-17 16:13] LABS: Basophils % (A) 0 %; Eosinophils % (A) 0 %; HCT 40.7 % (39.0-53.0); HGB 14.4 gm/dL (13.0-17.5); Lymphocytes # (A) 0.8 k/uL (1.0-4.8); Lymphocytes % (A) 8 %; MCH 32.3 pg (25.0-35.0); MCHC 35.2 g/dL (31.0-37.0); MCV 91.6 fL (80.0-100.0); Mean Platelet Volume 7.9; Monocytes # (A) 0.3 k/uL (0-1.0); Monocytes % (A) 3 %; Neutrophils # (A) 8.7 k/uL (1.3-7.7); Neutrophils % (A) 88 %; Platelet Count 154 k/uL (150-450); RBC 4.45 m/uL (4.30-5.90); WBC 9.9 k/uL (3.8-10.6)
[2023-10-17 16:18] LABS: Partial Thromboplastin Time 26.2 sec (22.0-30.0)
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
[2023-10-17 16:59] LABS: ALT 15 U/L (4-49); AST 22 U/L (17-59); African American GFR (CKD) >90 (>60 ml/min/1.73 sqM); Albumin 4.7 g/dL (3.5-5.0); Alkaline Phosphatase 105 U/L (38-126); Amylase 66 U/L (30-110); Anion Gap 15 mmol/L; Blood Urea Nitrogen 9 mg/dL (9-20); Calcium 9.8 mg/dL (8.4-10.2); Carbon Dioxide 23 mmol/L (22-30); Chloride 101 mmol/L (98-107); Glucose 211 mg/dL (74-99); Lipase 49 U/L (23-300); Non-African American GFR(CKD) >90 (>60 ml/min/1.73 sqM); Potassium 4.1 mmol/L (3.5-5.1); Sodium 139 mmol/L (137-145)
[2023-10-17 17:21] LABS: Appearance,Urine Clear (Clear); Bilirubin,Urine Negative (Negative); Blood,Urine Negative (Negative); Color,Urine Light Yellow; Glucose,Urine (UA) 3+ (Negative); Leukocyte Esterase,Urine Negative (Negative); Mucus,Urine Few /hpf; Nitrite,Urine Negative (Negative); Protein,Urine 1+ (Negative); RBC,Urine 2 /hpf (0-5); Specific Gravity,Urine 1.025 (1.001-1.035); Urobilinogen,Urine <2.0 mg/dL (<2.0); WBC,Urine 1 /hpf (0-5)
[2023-10-17 18:19] LABS: Ketones,Urine 3+ (Negative)
--- NOTE | 2023-10-17 18:35 | CT ---
EXAMINATION TYPE: CT abdomen pelvis wo con DATE OF EXAM: 10/17/2023 COMPARISON: None INDICATION: abdominal pain, nausea, vomiting DLP: 580.4 mGycm, Automated exposure control for dose reduction was used. CONTRAST: 0 mL of Isovue 300. Study performed without Oral Contrast TECHNIQUE: Axial images were obtained from above the diaphragm to the pubic rami in the axial plane a t 5 mm thick sections. Reconstructed images are reviewed on the computer in the coronal plane. FINDINGS: Limited CT sections are obtained the lung bases. The lung bases are clear. CT ABDOMEN: Liver: Normal Spleen: Normal Pancreas: Normal Adrenal glands: The adrenal glands are normal. Gallbladder: Normal Kidneys: No masses are evident. No hydronephrosis is present. No cysts are present. No renal stone s are evident. Aorta: Vascular calcification is within the aorta. Inferior vena cava: Normal. CT PELVIS: Some subtle wall thickening through the sigmoid colon may be present. Correlate for colitis. A few di verticuli are within the sigmoid colon. This study is performed without oral contrast limiting bowel evaluation. Appendix: Not identified. No suspicious dilated tubular structure or inflammatory change is evident. Urinary bladder: Normal. Genitourinary structures: Prostate is normal Osseous structures: No suspicious lytic or sclerotic lesions IMPRESSION: 1. There may be some subtle wall thickening through the sigmoid colon. Correlate with the patient's symptoms. Mild colitis may be present. 2. CT abdomen and pelvis otherwise appears within normal limits.
[2023-10-17 19:30] VITALS: BP 128/82; PULSE 96; RESP 18
== END 2023-10-17 19:13 | disposition home or self-care (01) ==
LOC: EC 14:54
DX: K52.9 Noninfective gastroenteritis and colitis, unspecified (principal); E86.0 Dehydration; I45.2 Bifascicular block; J44.9 Chronic obstructive pulmonary disease, unspecified; I25.10 Atherosclerotic heart disease of native coronary artery without angina pectoris; F12.90 Cannabis use, unspecified, uncomplicated; Z20.822 Contact with and (suspected) exposure to COVID-19; Z79.82 Long term (current) use of aspirin; Z79.899 Other long term (current) drug therapy; Z87.891 Personal history of nicotine dependence; Z90.49 Acquired absence of other specified parts of digestive tract
CPT/HCPCS: 36415; 93005; 80053; 82150; 83605; 83690; 85025; 85610; 85730; 81001; 87636; 74176; 99284; 96374; 96375; 96376 ×2; 96361; J2405; J1170